=== PATIENT | female | born 1960 | race Caucasian/White ===

== ENCOUNTER 2019-07-03 09:43 | Outpatient (CLI) | payer BC, SELFPAY ==
--- NOTE | 2019-07-03 09:54 | XR_ITS ---
WS: [id number] Lumbar spine, 3 views, 07/03/2019 Clinical Data: low back pain worse on right Comparison: None. Findings: No compression fractures or subluxation is seen. No disc space narrowing is seen. The transverse proc esses and SI joints are normal. There is calcification in the wall of the abdominal aorta but no aneurysm is present. XR/XR lumbar spine 2-3V* [id number] Impression: Negative lumbar spine.
== END 2019-07-03 09:44 | disposition home or self-care (01) ==
LOC: RAD 09:47
PROVIDERS: Family Provider Internal Medicine; PCP Family Medicine; Visit Provider Family Medicine
DX: Z01.419 Encounter for gynecological examination (general) (routine) without abnormal findings (principal); Z13.6 Encounter for screening for cardiovascular disorders; M54.5 Low back pain; G89.29 Other chronic pain; N63.22 Unspecified lump in the left breast, upper inner quadrant; R91.1 Solitary pulmonary nodule; J01.90 Acute sinusitis, unspecified; R53.83 Other fatigue; B96.89 Other specified bacterial agents as the cause of diseases classified elsewhere; F17.219 Nicotine dependence, cigarettes, with unspecified nicotine-induced disorders
CPT/HCPCS: 72100; 80053; 80061; 84443; 85025; 88175

== ENCOUNTER 2019-07-09 09:39 | Outpatient (CLI) | payer BC, SELFPAY ==
--- NOTE | 2019-07-09 10:13 | CT_ITS ---
WS: [id number] CT CHEST TECHNIQUE: Contrast enhanced CT of the chest with coronal and sagittal reformatted images. CLINICAL INFORMATION: RIGHT LUNG NODULE COMPARISON: None. DLP: 544.[address] scans at [facility] use at least one of these dose optimization techniques: automat ed exposure control; mA and/or kV adjustment per patient size (includes targeted exams where dose is matched to clinical indication); or iterative reconstruction. FINDINGS: Mild chronic emphysematous changes. No acute pulmonary infiltrates. No focal pneumonia. No consolidat ion or pleural fluid. Noncalcified pulmonary nodule right middle lobe measuring 4.7 mm. Subsegmental atelectasis right middle lobe. Calcified granuloma right upper lobe. Proximal main pulmonary arteries are normal. No mediastinal or hilar lymphadenopathy. Normal caliber thoracic aorta. No axillary lymphadenopathy. Small bilateral low-attenuation thyroid nodules measurin g 6 to 7 mm. Normal endobronchial tree. Hepatic cyst right hepatic lobe measuring 3.9 x 3.1 CM. A few smaller incidental hepatic cysts. Adren al glands are normal. Normal GE junction. Normal visualized thoracic spine. Small splenules. CT/CT chest w con* [id number] IMPRESSION: 1. Mild chronic emphysematous changes. No acute pulmonary infiltrates. 2. Noncalcified 4.7 mm nodule right middle lobe. No other suspicious pulmonary opacities. Recommend 6 month follow-up. 3. Right hepatic cyst measuring 3.9 x 3.1 CM. A few additional smaller hepatic cysts. 4. No mediastinal or hilar lymphadenopathy.
[2019-07-09] MEDS: iohexol 300 mg/mL 100 mL Btl IV (10:29)
== END 2019-07-09 09:40 | disposition home or self-care (01) ==
PROVIDERS: Family Provider Internal Medicine; PCP Family Medicine; Visit Provider Family Medicine
DX: R91.1 Solitary pulmonary nodule (principal); K76.89 Other specified diseases of liver
CPT/HCPCS: 71260; Q9967

== ENCOUNTER 2019-07-24 08:25 | Outpatient (CLI) | payer BC, SELFPAY ==
--- NOTE | 2019-07-24 08:32 | MM_ITS ---
WS: [id number] BILATERAL DIGITAL DIAGNOSTIC MAMMOGRAM MAMMOGRAPHY WITH CAD CLINICAL INFORMATION: LEFT BREAST LUMP COMPARISON: 015 TECHNIQUE: Bilateral CC, MLO, and ML views. FINDINGS: Scattered fibroglandular densities bilaterally. Punctate and lucent centered calcifications. Palpable marker left breast. No definite underlying mammographic abnormalities. Ultrasound is pending. Vascul ar calcification. Right breast is unchanged. ULTRASOUND BREAST LEFT TECHNIQUE: Ultrasound left breast focused area of concern. CLINICAL INFORMATION: LEFT BREAST LUMP FINDINGS: Ultrasound left breast at the 11 to 1:00 position. Incidental lymph node is noted at the 1:00 positio n. No evidence of pathologic mass or lesion. No lesions to target for biopsy. MM/[place] [id number] BI-RADS: 2-Benign FOLLOW UP: 1 Year Follow-up Recommend return to annual screening mammography.
== END 2019-07-24 08:26 | disposition home or self-care (01) ==
LOC: RADSHAW 08:25
PROVIDERS: Family Provider Internal Medicine; PCP Family Medicine; Visit Provider Family Medicine
DX: N63.22 Unspecified lump in the left breast, upper inner quadrant (principal)
CPT/HCPCS: 76642; 77066

== ENCOUNTER → 2019-07-30 11:30 | Outpatient (BNVA) | payer BC, SELFPAY | PROVIDERS: Family Provider Internal Medicine; PCP Family Medicine; Referring Provider Family Medicine; Visit Provider Otolaryngology | DX: H93.92 Unspecified disorder of left ear (principal); H69.82 Other specified disorders of Eustachian tube, left ear; J34.2 Deviated nasal septum; J34.3 Hypertrophy of nasal turbinates; J30.9 Allergic rhinitis, unspecified; J32.9 Chronic sinusitis, unspecified; F17.210 Nicotine dependence, cigarettes, uncomplicated | CPT/HCPCS: 96372; 99204; 99214; J3301 ==

== ENCOUNTER 2019-08-13 08:22 | Outpatient (CLI) | payer BC, SELFPAY ==
--- NOTE | 2019-08-13 08:45 | US_ITS ---
WS: [id number] ABDOMINAL ULTRASOUND LIMITED REASON FOR VISIT: hepatic cyst TECHNIQUE: Grayscale and Doppler ultrasound examination of the abdomen. FINDINGS: Pancreas: Within normal limits Abdominal aorta and IVC: Within normal limits. Liver: Liver measures 14.1 cm in length. The liver shows 3 prominent cystic masses 1 measured 2.91 x 2.91 cm x 4.02 cm, the second measures 2.5 cm and the third measures 3.3 cm. All meet the criteria fo r simple cysts. Hepatopedal circulation is evident. Gallbladder: Gallbladder wall thickness measures 0.2 mm. No stones Right kidney: Right kidney measures 9.2 cm x 4.0 cm x 4.4 cm. Right kidney cortex measures 0.9 c m No hydronephrosis or stones. IMPRESSION Multiple benign hepatic cysts.
== END 2019-08-13 08:23 | disposition home or self-care (01) ==
LOC: US 08:24
PROVIDERS: Family Provider Family Medicine; PCP Family Medicine; Visit Provider Family Medicine
DX: K76.89 Other specified diseases of liver (principal)
CPT/HCPCS: 76705

== ENCOUNTER 2019-08-18 14:16 | Emergency (ER) | payer BC, SELFPAY ==
[2019-08-18 14:20] VITALS: BP 187/99; PULSE 71; RESP 17; TEMP 36.9; O2SAT 97; BMI 23.9
--- NOTE | 2019-08-18 15:01 | XR_ITS ---
WS: [id number] Sacroiliac joints, 08/18/2019 Clinical Data: pain Comparison: Sacrum and coccyx, 05/02/2015. Findings: The SI joints are normal in width. No erosion, sclerosis or destruction is seen. There are no fractur es or dislocations. The adjacent visualized pelvis and hips are unremarkable. XR/XR sacroiliac jts m 3V [id number] Impression: Negative SI joints.
--- NOTE | 2019-08-18 15:01 | CT_ITS ---
WS: [id number] CT ABDOMEN PELVIS TECHNIQUE: Contrast-enhanced CT of the abdomen and pelvis with coronal and sagittal reformatted image s. CLINICAL INFORMATION: R sided abdominal pain COMPARISON: None. DLP: 485.[address] scans at [facility] use at least one of these dose optimization techniques: automat ed exposure control; mA and/or kV adjustment per patient size (includes targeted exams where dose is matched to clinical indication); or iterative reconstruction. FINDINGS: Lobulated right hepatic cyst measuring 3.6 CM. Additional small incidental hepatic cysts in both hepa tic lobes. Normal spleen. Adrenal glands are normal. Normal renal parenchymal enhancement. Normal por graham veins and splenic vein. Normal gallbladder. Adrenal glands are normal. Normal renal parenchymal e nhancement. Small left greater than right renal cysts. No hydronephrosis. Normal caliber abdominal aorta. Aortic calcification. Fat-containing umbilical hernia. Appendix is no t definitely visualized. No evidence of acute appendicitis. Lung bases are well aerated. CT/CT abdomen pelvis w con* [id number] IMPRESSION: 1. No evidence of small or large bowel obstruction. A few normal caliber fluid -filled small bowel loops in the pelvis. 2. Appendix is not definitely visualized but no evidence of acute appendicitis . 3. Multiple simple hepatic cysts largest in the right hepatic lobe measuring 3 .6 cm. 4. Normal renal parenchymal enhancement. No hydronephrosis. 5. A few renal cysts the largest in the left kidney measuring 1.2 CM.
--- NOTE | 2019-08-18 15:03 | W.ED.ABDPA2 ---
HPI - Abdominal Pain General: Chief Complaint: Abdominal Pain Stated Complaint: RT side pain Time Seen by Provider: 08/18/19 14:25 Source: patient Mode of arrival: ambulatory Limitations: no limitations History of Present Illness: HPI narrative: Patient is a 59-year-old female who presents to ED today with complaints of right-sided back pain with radiation down into her right hip and around into her abdomen. Patient states she initially noticed the pain about a month ago but that pain apparently was complaining more of pain in the chest. A CT of her chest was obtained from her PCP which showed a pulmonary nodule and incidental findings of hepatic cysts. She subsequently had an ultrasound of her abdomen to further evaluate which again showed simple hepatic cysts. Patient tells me earlier today while moving she felt a pop and immediately began having severe pains. She tells me her pains feel internal and seems agitated that previous providers have suggested it might be musculoskeletal. Patient reports she feels nauseous due to the pain. Urinary and defecation habits have been normal. She has not been running fevers. Pain does not radiate down her right lower extremity. Associated Symptoms: Reports nausea; Denies change in bowel habits, change in stool character, chills, coffee ground emesis, diarrhea, dysuria, fever(s), heartburn, hematochezia, hematemesis, melena, syncope and vomiting Review of Systems Const: Denies: fever, chills, body aches, change in appetite, change in weight or fatigue Eyes: Denies: change in vision, blurry vision or photophobia ENMT: Denies: throat pain, enlarged tonsils or painful swallowing Card: Denies: chest pain, palpitations, irregular heart rhythm, edema, swelling of feet/ankles, lightheadedness, syncope, pre-syncope, shortness of breath on exertion, shortness of breath when lying down, leg pain with exertion or bluish discoloration of hands/feet Resp: Denies: shortness of breath, productive cough, non-productive cough, change in phlegm color, coughing up blood or chest congestion GI: Reports: abdominal pain and nausea; Denies: vomiting, vomiting blood, coffee grounds in vomit, heartburn/indigestion, diarrhea, change in bowel habits, change in stool character, blood in stool, black tarry stool, mucus in stool, white/light colored stool or fatty stool : Denies: flank pain, difficulty urinating, painful urination, urinary frequency, urinary urgency or urinary hesitancy Musc: Reports: back pain; Denies: neck pain, extremity pain, extremity swelling, joint pain, joint swelling or limited range of motion Skin/Breast: Denies: rash Neuro: Denies: headache, numbness in extremities, weakness in extremities or changes in sensation PFSH ED PFSH: Medical History (Updated 08/18/19 @ 16:41 by COTY Ojeda) Chronic sinusitis Deviated septum Fibromyalgia H/O fracture of tibia Nasal turbinate hypertrophy Nicotine dependence, cigarettes, with unspecified nicotine-induced disorders Rhinitis, allergic Right lower lobe pulmonary nodule Right-sided chest pain Seasonal affective disorder Surgical History H/O bone graft H/O section H/O lumpectomy H/O shoulder surgery BILATER S/P partial hysterectomy Due to endometrial cancer Status post bilateral salpingectomy Social History Smoking and tobacco status: current every day smoker cigarettes Packs smoked per day: 0.25 Alcohol intake: current Alcohol intake frequency: holidays/special occasions only Alcohol type: wine Adopted: Yes Marital status: Life Partner Physical Exam Const: COMMON NORMALS: average body habitus, oriented x3, no limitations, healthy appearing, alert and well nourished GENERAL APPEARANCE: in distress (pacing around room due to discomfort ) HENMT: COMMON NORMALS: normocephalic and head/scalp atraumatic HEAD & SCALP: normocephalic and atraumatic Chest: COMMONS NORMALS: inspection of chest normal and palpation of chest normal Resp: COMMON NORMALS: normal respiratory effort and clear to auscultation bilaterally AUSCULTATION: clear to auscultation bilaterally Cardio: COMMON NORMALS: regular rate and regular rhythm RATE: regular rate RHYTHM: regular rhythm GI: COMMON NORMALS: normal to inspection, nondistended, normoactive bowel sounds, soft to palpation, no hepatosplenomegaly and no masses PALPATION: Yes soft, Yes tender (R lateral abdomen) and Yes no hepatosplenomegaly : COMMON NORMALS: Yes no CVA tenderness BLADDER/KIDNEY EXAM: Yes no CVA tenderness Back/Pelvis: COMMON NORMALS: no CVA tenderness OTHER: TTP at R sacroiliac region and throughout R lumbar paraspinal musculature; ROM of hip joint is intact; strength to her LEs are intact; femoral and distal pulses intact and equal bilaterally Extremity: COMMON NORMALS: normal to inspection, full ROM, normal capillary refill, no calf tenderness and no pedal edema Neuro: COMMON NORMALS: oriented x3, moves all extremities, no focal motor deficits, no sensory deficits noted and gait normal SENSORIUM/ORIENTATION: Yes alert Skin: COMMON NORMALS: no rashes or lesions noted GENERAL SKIN EXAM: no rashes or lesions noted Course Vital Signs: Vital signs: Vital Signs Temperature 98.4 F 08/18/19 14:20 Pulse Rate 71 08/18/19 14:20 Respiratory Rate 17 08/18/19 15:08 Blood Pressure 187/99 08/18/19 14:20 Pulse Oximetry 97 08/18/19 14:20 MDM - Abdominal Pain MDM Narrative: Medical decision making narrative: I do not see anything grossly abnormal patient's blood work. Her XRs and CT scan do not show anything that would explain her symptoms. UA is contaminated but does show a little blood-I do not visualize any kidney stone or ureter stone on her scan. Timing of symptoms and history given today does not seem to coincide with a stone. I feel patient's are most likely related to a sacroiliitis. We will go ahead and try to treat this and recommend she follow-up with PCP. Lab Data: Labs: Lab Results 08/18/19 08/18/19 08/18/19 Range/Units 14:35 14:35 15:42 WBC 12.8 H (4.0-10.0) 10^3/ uL RBC 5.22 (4.1-5.3) 10^6/u L Hgb 15.9 H (11.5-15.3) g/dL Hct 48.3 H (37.0-47.0) % MCV 92.5 (81-99) fL MCH 30.5 (28.0-34.0) pg MCHC 32.9 (30.0-36.0) g/dL RDW 14.0 (12.1-15.1) % Plt Count 236 (130-400) 10^3/c mm MPV 12.9 H (7.4-10.4) fL Neut % (Auto) 59.5 % Lymph % (Auto) 31.8 % [place] % (Auto) 5.4 % Eos % (Auto) 2.2 % Baso % (Auto) 0.8 % Neut # (Auto) 7.7 (1.8-7.7) 10^3/u L Lymph # (Auto) 4.1 (0.8-4.8) 10^3/u L [place] # (Auto) 0.7 (0.2-0.9) 10^3/u L Eos # (Auto) 0.3 (0.0-0.8) 10^3/u L Baso # (Auto) 0.1 (0.0-0.1) 10^3/u L Nucleated RBC % (a uto) 0 % Nucleated RBCs # 0.0 /100WBC Sodium 139 (136-145) mmol/L Potassium 3.6 (3.5-5.1) mmol/L Chloride 101 (98-107) mmol/L Carbon Dioxide 25 (22-29) mmol/L Anion Gap 16.6 (5-19) BUN 10 (6-20) mg/dL Creatinine 0.7 (0.5-0.9) mg/dL GFR Calculation 86.2 L (90-130) mL/min Glucose 115 (65-115) mg/dL Calculated Osmolal ity 285 (285-295) mOsm/k g Calcium 9.7 (8.5-10.5) mg/dL Total Bilirubin 0.3 (0.15-1.2) mg/dL AST 27 (0-32) U/L ALT 34 H (0-33) U/L Alkaline Phosphata se 105 (35-105) IU/L Total Protein 7.6 (6.6-8.7) g/dL Albumin 4.7 (3.5-5.2) g/dL Globulin 2.9 (1.3-4.6) g/dL Lipase 16 (13-60) U/L Urine Color Yellow (Yellow) Urine Appearance Clear (CLEAR) Urine pH 5 (5-7) Ur Specific Gravit y 1.010 (1.005-1.030) Urine Protein Neg (Negative) Urine Glucose (UA) Norm (Normal) Urine Ketones 1+ H (Negative) Urine Blood 2+ H (Negative) Urine Nitrate Negative (Negative) Urine Bilirubin Neg (NEGATIVE) Urine Urobilinogen Norm (Negative) mg/dL Ur Leukocyte Liliana ase Negative (Negative) Urine RBC 15-25 H (0-2) /hpf Urine WBC 0-4 H (0-5) /hpf Ur Squamous Epith Cells 5-10 H (0-5) Urine Bacteria 2+ H (NONE) Urine Mucus 3+ Imaging Data ^: XR SI joints: Radiologist's impression: [place] [address] XRay Report Signed Patient: Albertina Soto Unit #: [id number] : 1960 Age/Sex: 59 / F ADM Date: 08/18/19 Loc: ER Room/Bed: Attending Dr: Ordering Provider/Ordering MD: Do Cardenas Date of Service: 08/18/19 Procedure(s): XR sacroiliac jts m 3V [id number] Accession Number(s): [id number] Report Number: [id number] WS: [id number] Sacroiliac joints, 08/18/2019 Clinical Data: pain Comparison: Sacrum and coccyx, 05/02/2015. Findings: The SI joints are normal in width. No erosion, sclerosis or destruction is seen. There are no fractures or dislocations. The adjacent visualized pelvis and hips are unremarkable. XR/XR sacroiliac jts m 3V [id number] Impression: Negative SI joints. Dictated By: Brie Eduardo MD Signed By: Brie Eduardo MD Signed Date/Time: 08/18/19 1522 DD/ 1520 CT Abd/Pel: Radiologist's impression: [address] [address] [address] Scan Report Signed Patient: Albertina Soto Unit #: [id number] : 1960 Age/Sex: 59 / F ADM Date: 08/18/19 Loc: ER Room/Bed: Attending Dr: Ordering Provider/Ordering MD: Do Cardenas Date of Service: 08/18/19 Procedure(s): CT abdomen pelvis w con* [id number] Accession Number(s): [id number] Report Number: [id number] WS: [id number] CT ABDOMEN PELVIS TECHNIQUE: Contrast-enhanced CT of the abdomen and pelvis with coronal and sagittal reformatted images. CLINICAL INFORMATION: R sided abdominal pain COMPARISON: None. DLP: 485.[address] scans at [facility] use at least one of these dose optimization techniques: automated exposure control; mA and/or kV adjustment per patient size (includes targeted exams where dose is matched to clinical indication); or iterative reconstruction. FINDINGS: Lobulated right hepatic cyst measuring 3.6 CM. Additional small incidental hepatic cysts in both hepatic lobes. Normal spleen. Adrenal glands are normal. Normal renal parenchymal enhancement. Normal portal veins and splenic vein. Normal gallbladder. Adrenal glands are normal. Normal renal parenchymal enhancement. Small left greater than right renal cysts. No hydronephrosis. Normal caliber abdominal aorta. Aortic calcification. Fat-containing umbilical hernia. Appendix is not definitely visualized. No evidence of acute appendicitis. Lung bases are well aerated. CT/CT abdomen pelvis w con* [id number] IMPRESSION: 1. No evidence of small or large bowel obstruction. A few normal caliber fluid-filled small bowel loops in the pelvis. 2. Appendix is not definitely visualized but no evidence of acute appendicitis. 3. Multiple simple hepatic cysts largest in the right hepatic lobe measuring 3.6 cm. 4. Normal renal parenchymal enhancement. No hydronephrosis. 5. A few renal cysts the largest in the left kidney measuring 1.2 CM. Dictated By: Bradley Berkowitz MD Signed By: Bradley Berkowitz MD Signed Date/Time: 08/18/19 1600 DD/ 1539 Discharge Plan Discharge Patient Disposition: Home, Self-Care Clinical Impression: Sacroiliitis Condition: Stable Prescriptions: New cyclobenzaprine 10 mg tablet 10 mg PO TID Qty: 14 RF: 0 prednisone 10 mg tablet 60 mg PO DAILY 5 Days Qty: 30 RF: 0 tramadol 50 mg tablet 50 mg PO Q6H PRN (Reason: pain) Qty: 14 RF: 0 No Action duloxetine [Cymbalta] 20 mg capsule,delayed release(DR/EC) 20 mg PO BID Qty: 60 RF: 0 diclofenac sodium 75 mg tablet,delayed release (DR/EC) 75 mg PO BID Qty: 60 RF: 0 simvastatin 20 mg tablet 20 mg PO DAILY Qty: 45 RF: 0 Vitamin C 1,000 mg Tablet 2,000 mg PO DAILY RF: 0 Vitamin B-12 1,000 mcg Tablet 1,000 mcg PO DAILY RF: 0 Calcium 500 500 mg calcium (1,250 mg) Tablet 500 mg PO DAILY RF: 0 zinc 50 mg Tablet 50 mg PO DAILY RF: 0 niacin 250 mg Tablet 250 mg PO DAILY RF: 0 Vitamin D3 25 mcg (1,000 unit) Tablet 25 mcg PO DAILY RF: 0 potassium iodide 99 MG 99 mg PO DAILY RF: 0 Discharge Orders: Discharge Order (Routine); Ordered 08/18/19 Ordered By: Do Cardenas Referrals: Crystal Solorzano DO [Primary Care Provider] - Discharge Diet: Usual diet Discharge Activity: Increase activity as tolerated Patient Instructions: Sacroiliitis (ED), Back Pain (ED) Coding Level of Care Code ED [employer] 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
[2019-08-18 15:08] VITALS: RESP 17
[2019-08-18] MEDS: ketorolac 60 mg/2 mL INJ 30 MG IVP (15:08)
[2019-08-18] MEDS: morphine 4 mg/mL SDV 1 mL IVP (15:08)
[2019-08-18] MEDS: orphenadrine 30 mg/mL Inj 2 mL 60 MG IM (15:09)
[2019-08-18 15:16] LABS: Basophils # 0.1 10^3/uL (0.0-0.1); Basophils % 0.8 %; Eosinophils # 0.3 10^3/uL (0.0-0.8); Eosinophils % 2.2 %; Hematocrit 48.3 % (37.0-47.0); Hemoglobin 15.9 g/dL (11.5-15.3); Lymphocytes # 4.1 10^3/uL (0.8-4.8); Lymphocytes % 31.8 %; Mean Corpuscular HGB Conc 32.9 g/dL (30.0-36.0); Mean Corpuscular Hemoglobin 30.5 pg (28.0-34.0); Mean Corpuscular Volume 92.5 fL (81-99); Mean Platelet Volume 12.9 fL (7.4-10.4); Monocytes # 0.7 10^3/uL (0.2-0.9); Monocytes % 5.4 %; Neutrophils # 7.7 10^3/uL (1.8-7.7); Neutrophils % 59.5 %; Nucleated Red Blood Cells % 0 %; Platelet Count 236 10^3/cmm (130-400); Red Blood Count 5.22 10^6/uL (4.1-5.3); White Blood Count 12.8 10^3/uL (4.0-10.0)
[2019-08-18 15:26] LABS: Alanine Aminotransferase 34 U/L (0-33); Albumin Level 4.7 g/dL (3.5-5.2); Alkaline Phosphatase 105 IU/L (35-105); Anion Gap 16.6 (5-19); Aspartate Amino Transferase 27 U/L (0-32); Blood Urea Nitrogen 10 mg/dL (6-20); Calcium 9.7 mg/dL (8.5-10.5); Carbon Dioxide 25 mmol/L (22-29); Chloride 101 mmol/L (98-107); Globulin 2.9 g/dL (1.3-4.6); Glomerular Filtration Rate 86.2 mL/min (90-130); Glucose 115 mg/dL (65-115); Lipase 16 U/L (13-60); Osmolality Calculated 285 mOsm/kg (285-295); Potassium 3.6 mmol/L (3.5-5.1); Sodium 139 mmol/L (136-145); Total Bilirubin 0.3 mg/dL (0.15-1.2); Total Protein 7.6 g/dL (6.6-8.7)
[2019-08-18] MEDS: iohexol 300 mg/mL 100 mL Btl IV (15:29)
[2019-08-18] MEDS: dexamethasone 10 mg/mL INJ IM (16:04)
[2019-08-18 16:20] LABS: Blood Urine 2+ (Negative); Glucose Urine UA Norm (Normal); Ketones Urine 1+ (Negative); Protein Urine Neg (Negative); Urine Appearance Clear (CLEAR); Urine Color Yellow (Yellow); pH Urine 5 (5-7)
[2019-08-18 16:21] LABS: Bilirubin Urine Neg (NEGATIVE); Leukocyte Esterase Urine Negative (Negative); Nitrate Urine Negative (Negative); Urobilinogen Urine Norm (Negative)
[2019-08-18 16:22] LABS: Add Urine Microscopic? YES
[2019-08-18 16:24] LABS: RBC Urine 15-25 /hpf (0-2); WBC Urine 0-4 /hpf (0-5)
[2019-08-18 16:25] LABS: Add Urine Culture? Yes; Bacteria Urine 2+; Mucus Urine 3+
[2019-08-18 16:53] VITALS: BP 137/92; PULSE 69; RESP 16; O2SAT 99
== END 2019-08-18 16:53 | disposition home or self-care (01) ==
PROVIDERS: Emergency Provider Physician Assistant; Family Provider Family Medicine; PCP Family Medicine
DX: M46.1 Sacroiliitis, not elsewhere classified (principal); F17.210 Nicotine dependence, cigarettes, uncomplicated
CPT/HCPCS: 12345; 72202; 74177; 80053; 81001; 83690; 85025; 87086; 96372; 96374; 96375; 99282; 99284; J1100; J1885; J2270; J2360; Q9967

== ENCOUNTER 2019-10-21 10:33 | Outpatient (CLI) | payer BC, SELFPAY ==
--- NOTE | 2019-10-21 10:36 | XR_ITS ---
WS: [id number] THORACIC SPINE TECHNIQUE: 3 views of the thoracic spine CLINICAL INFORMATION: thoracic back pain COMPARISON: None. FINDINGS: Mild thoracic curve. No acute appearing compression fractures. Mild to moderate thoracic kyphosis wit h chronic anterior wedging in the mid thoracic spine. Mild spondylitic changes. Normal cardiac silhou ette. Visualized lungs are well aerated. XR/XR thoracic spine 2V [id number] IMPRESSION: Mild thoracic curve with mild to moderate thoracic kyphosis. No acute findings.
== END 2019-10-21 10:34 | disposition home or self-care (01) ==
LOC: RADWPI 10:34
PROVIDERS: Family Provider Family Medicine; PCP Family Medicine; Visit Provider Family Medicine
DX: M54.6 Pain in thoracic spine (principal); G89.29 Other chronic pain; M40.294 Other kyphosis, thoracic region
CPT/HCPCS: 72070

== ENCOUNTER → 2019-12-24 09:29 | Outpatient (BNVA) | payer BC, SELFPAY | PROVIDERS: Family Provider Family Medicine; PCP Family Medicine; Visit Provider Family Medicine | DX: E78.5 Hyperlipidemia, unspecified (principal); M79.7 Fibromyalgia; J01.90 Acute sinusitis, unspecified; B96.89 Other specified bacterial agents as the cause of diseases classified elsewhere | CPT/HCPCS: 80053; 80061 ==

== ENCOUNTER 2019-12-29 07:48 | Outpatient (CLI) | payer BC, SELFPAY ==
--- NOTE | 2019-12-29 08:00 | MR_ITS ---
WS: [id number] MRI THORACIC SPINE WITHOUT CONTRAST TECHNIQUE: Sagittal T1, T2 and STIR imaging. Axial T2 imaging. Noncontrast imaging obtained. CLINICAL INFORMATION: PAIN IN THORACIC SPINE COMPARISON: MRI November 19, 2019 FINDINGS: Moderate thoracic kyphosis. No acute compression fractures. No high-grade central canal stenosis. Cor d signal is normal. Small central disc protrusion T9-T10 with slight effacement of ventral thecal sac . Moderate facet arthropathy lower thoracic spine. Mild bony foraminal narrowing right T3-4, right T4-5, right T5-6, right T6-7, right T7-8. Normal myrna iber thoracic aorta. MR/MR thoracic spin wo con* [id number] IMPRESSION: 1. Mild thoracic kyphosis. No acute compression. No high-grade central canal s tenosis. 2. Tiny shallow central protrusion T9-T10 with slight effacement of the thecal sac. 3. Moderate facet arthropathy lower thoracic spine. 4. Mild bony foraminal narrowing described above.
== END 2019-12-29 07:49 | disposition home or self-care (01) ==
LOC: RADWPI 07:52
PROVIDERS: Family Provider Family Medicine; PCP Family Medicine; Visit Provider Family Medicine
DX: M54.6 Pain in thoracic spine (principal); M47.894 Other spondylosis, thoracic region
CPT/HCPCS: 72146

== ENCOUNTER → 2020-05-11 15:56 | Outpatient (BNVA) | payer BC, SELFPAY | PROVIDERS: Family Provider Family Medicine; PCP Family Medicine; Visit Provider Family Medicine | DX: Z20.828 Contact with and (suspected) exposure to other viral communicable diseases (principal) | CPT/HCPCS: 87635 ==

== ENCOUNTER → 2020-05-16 10:28 | Outpatient (BNVA) | payer BC, SELFPAY | PROVIDERS: Family Provider Family Medicine; PCP Family Medicine; Visit Provider Nurse Practitioner Family | DX: Z20.828 Contact with and (suspected) exposure to other viral communicable diseases (principal); J11.1 Influenza due to unidentified influenza virus with other respiratory manifestations; J32.9 Chronic sinusitis, unspecified | CPT/HCPCS: 87635 ==

== ENCOUNTER → 2020-07-08 17:47 | Outpatient (BNVA) | payer OTHER, SELFPAY | PROVIDERS: Family Provider Family Medicine; PCP Family Medicine; Visit Provider Nurse Practitioner | DX: S99.922A Unspecified injury of left foot, initial encounter (principal); S59.901A Unspecified injury of right elbow, initial encounter; X58.XXXA Exposure to other specified factors, initial encounter | CPT/HCPCS: 73080; 73630 ==

== ENCOUNTER → 2020-09-17 13:18 | Outpatient (BNVA) | payer OTHER, SELFPAY | PROVIDERS: Family Provider Family Medicine; PCP Family Medicine; Visit Provider Nurse Practitioner | DX: J02.9 Acute pharyngitis, unspecified (principal); J20.9 Acute bronchitis, unspecified; J01.90 Acute sinusitis, unspecified; B96.89 Other specified bacterial agents as the cause of diseases classified elsewhere | CPT/HCPCS: 87071; 87880 ==

== ENCOUNTER 2020-09-22 10:10 | Outpatient (CLI) | payer OTHER, SELFPAY ==
--- NOTE | 2020-09-22 10:00 | CT_ITS ---
WS: [id number] CT CHEST TECHNIQUE: Contrast enhanced CT of the chest with coronal and sagittal reformatted images. CLINICAL INFORMATION: lung nodule COMPARISON: CT chest July 09, 2019 DLP: 613.[address] scans at [facility] use at least one of these dose optimization techniques: automat ed exposure control; mA and/or kV adjustment per patient size (includes targeted exams where dose is matched to clinical indication); or iterative reconstruction. FINDINGS: Moderate chronic emphysematous changes. No acute pulmonary infiltrates. No focal pneumonia or pleural fluid. A few calcified granulomas. Normal caliber thoracic aorta. Small bilateral thyroid nodules la rgest measuring 7 mm. No mediastinal or hilar lymphadenopathy. No axillary lymphadenopathy. Diffuse fatty infiltration of the liver. Partially visualized hepatic cysts the largest measuring 4.3 x 3.8 cm in the dome the liver. Adrenal glands are normal. Partially visualized small left renal cys t. Normal GE junction. Unremarkable thoracic spine. CT/CT chest w con* [id number] IMPRESSION: 1. Moderate chronic emphysematous changes. No acute pulmonary infiltrates. 2. Stable noncalcified nodule right middle lobe measuring 4.4 mm unchanged fro m previous. No other suspicious abnormalities. 3. A few partially visualized small thyroid nodules measuring 7 mm. This can b e followed up with ultrasound. This is similar to previous. 4. Hepatic cyst within the dome of the liver similar in appearance measuring 4 .3 x 3.8 cm
[2020-09-22] MEDS: iohexol 300 mg/mL 100 mL Btl IV (10:56)
== END 2020-09-22 10:11 | disposition home or self-care (01) ==
PROVIDERS: Family Provider Family Medicine; PCP Family Medicine; Visit Provider Family Medicine
DX: R91.1 Solitary pulmonary nodule (principal); K76.89 Other specified diseases of liver; F41.9 Anxiety disorder, unspecified; F32.9 Major depressive disorder, single episode, unspecified
CPT/HCPCS: 71260; 80053; 80061; 84443; 85025; Q9967

== ENCOUNTER 2020-10-25 14:53 | Emergency (ER) | payer OTHER, SELFPAY ==
[2020-10-25 15:48] VITALS: BP 139/85; PULSE 72; RESP 18; TEMP 36.9; O2SAT 99; BMI 25.4
--- NOTE | 2020-10-25 16:59 | W.ED.ANIMALB ---
HPI - Animal Bite General: Chief Complaint: Animal Bite Stated Complaint: ANIMAL BITE Time Seen by Provider: 10/25/20 16:29 Source: patient Mode of arrival: ambulatory Limitations: no limitations History of Present Illness: HPI narrative: 60-year-old female comes in today for injury to the left palmar hand that occurred yesterday. Patient reports that she had to 4-month-old Thai Gallagher puppies and got into a fight and she went to break them up and got injured. Patient has some ecchymosis and a puncture wound to the left palmar hand. Patient has normal range of motion of the hand. Patient reports her tetanus shot is up-to-date. Animal: dog Description of animal: household pet Mechanism: bite Location - Extremities: Left: hand Pain description: sharp Context: animals fighting Associated symptoms: Reports no associated symptoms Treatments prior to arrival: wound dressing(s) Review of Systems General: Reports: 10 or more systems reviewed and unremarkable except in HPI and below Musc: Reports: other (left hand pain) [facility] ED PFSH: Medical History (Updated 10/25/20 @ 17:03 by JOSEPH King) Chronic sinusitis Deviated septum Dyslipidemia Fibromyalgia H/O fracture of tibia Nasal turbinate hypertrophy Nicotine dependence, cigarettes, with unspecified nicotine-induced disorders Rhinitis, allergic Right lower lobe pulmonary nodule Right-sided chest pain Seasonal affective disorder Surgical History H/O bone graft H/O section H/O lumpectomy H/O shoulder surgery BILATER S/P partial hysterectomy Due to endometrial cancer Status post bilateral salpingectomy Family History Other Adopted Cancer Depression Social History Smoking and tobacco status: current every day smoker cigarettes Packs smoked per day: 0.25 Second hand smoke exposure: Yes Alcohol intake: current Alcohol intake frequency: holidays/special occasions only Alcohol type: wine Adopted: Yes Lives independently: Yes Household members: significant other Marital status: Life Partner service: No Current occupational status: retired History of recent travel: Yes Current gender identity: Female Special carlos manuel needs: No Physical Exam Const: COMMON NORMALS: no acute distress and patient oriented x3 GENERAL APPEARANCE: cooperative HENMT: COMMON NORMALS: normocephalic and Normal external nose present HEAD & SCALP: normal to inspection and normocephalic NOSE: Normal external nose present MOUTH: Normal oral and palatal mucosa present Eye: GENERAL EYE: appearance normal, both eyes and all related structures Neck/C-Spine: COMMON NORMALS: full ROM Lymph: LYMPHATIC: no lymphadenopathy noted Chest: COMMONS NORMALS: normal inspection of the chest Resp: COMMON NORMALS: normal respiratory effort EFFORT & INSPECTION: Yes able to speak in complete sentences Cardio: COMMON NORMALS: regular rate and regular rhythm RATE: regular rate RHYTHM: regular rhythm GI: COMMON NORMALS: non-tender Back/Pelvis: COMMON NORMALS: thoracic and lumbar spine normal to inspection Extremity: COMMON NORMALS: normal to inspection Neuro: COMMON NORMALS: patient oriented x3 and moves all extremities Psych: COMMON NORMALS: mental status grossly normal and cooperative Skin: NARRATIVE SKIN EXAM: puncture wound to left palmar hand, 2 cm superficial, normal rom TRAUMA: puncture Course Vital Signs: Vital signs: Vital Signs Temperature 98.5 F 10/25/20 15:48 Pulse Rate 72 10/25/20 15:48 Respiratory Rate 18 10/25/20 15:48 Blood Pressure 139/85 10/25/20 15:48 Pulse Oximetry 99 10/25/20 15:48 MDM - Animal Bite MDM Narrative: Medical decision making narrative: Patient comes in with injury to the left hand. Patient has some significant bruising noted to the palmar hand and the distal inner forearm. Patient has normal range of motion of the wrist and hand without any difficulty or increased pain with movement. Minimal swelling is noted. No redness is noted. Injuries occurred due to animal bite yesterday. Differential diagnosis need for prophylaxis vaccination, need for prophylaxis antibiotics, laceration hand, animal bite. Offered to give patient an x-ray and she refused. Patient reported that her tetanus shot was up-to-date. Wound is greater than 12 hours old and did not recommend suturing due to increased risk of infection already due to animal bite. We will start patient on some Augmentin which she is agreeable to. Patient states that she has been able to tolerate Amoxil-containing medications although she does have a penicillin allergy. Patient reports understanding of care plan and need for follow-up or return. Discharge Plan Discharge Patient Disposition: Home Clinical Impression: Bite by animal Condition: Stable Prescriptions: New Augmentin 875-125 mg tablet 1 tab PO BID Qty: 14 RF: 0 No Action duloxetine [Cymbalta] 60 mg capsule,delayed release(DR/EC) 60 mg PO DAILY Qty: 30 RF: 0 duloxetine 30 mg capsule,delayed release(DR/EC) 30 mg PO DAILY Qty: 30 RF: 0 albuterol sulfate [Ventolin HFA] 90 mcg/actuation HFA aerosol inhaler 2 puff inhalation Q6H PRN (Reason: shortness of breath or wheezing) Qty: 6.7 RF: 0 fluticasone propionate [Flonase Allergy Relief] 50 mcg/actuation spray,suspension 1 spray INTRANASAL BID RF: 0 lisinopril 10 mg tablet 10 mg PO DAILY Qty: 30 RF: 0 simvastatin 20 mg tablet 20 mg PO DAILY Qty: 90 RF: 1 Rexulti 2 mg tablet 2 mg PO DAILY Qty: 30 RF: 0 buspirone 10 mg tablet 10 mg PO TID Qty: 90 RF: 1 Discharge Orders: Discharge ED (Routine); Ordered 10/25/20 Ordered By: Delonte Pedro Referrals: Crystal Solorzano DO [Primary Care Provider] - Discharge Diet: Usual diet Discharge Activity: Increase activity as tolerated Patient Instructions: Opioid Safety Activity Restrictions/Additional Instructions: Continue with good care of wound 5 changing dressing daily and trying to keep it clean and dry. Take antibiotic 1 tablet twice a day for the next 7 days. Use ice to the hand for the next 24 to 48 hours for swelling and discomfort. Use acetaminophen and ibuprofen for other pain relief. Follow-up with primary care for further evaluation and treatment. Return to the ER for new concerns. Coding Level of Care Code ED Requirements Analyst for Shital Fwd Exam Comprehensive
== END 2020-10-25 17:06 | disposition home or self-care (01) ==
PROVIDERS: Emergency Provider Nurse Practitioner Family; PCP Family Medicine
DX: S61.452A Open bite of left hand, initial encounter (principal); W54.0XXA Bitten by dog, initial encounter; E78.5 Hyperlipidemia, unspecified; F17.210 Nicotine dependence, cigarettes, uncomplicated
CPT/HCPCS: 99282

== ENCOUNTER 2020-10-26 10:04 | Outpatient (CLI) | payer OTHER, SELFPAY ==
--- NOTE | 2020-10-26 10:15 | US_ITS ---
WS: [id number] ULTRASOUND THYROID TECHNIQUE: Ultrasound of the thyroid. CLINICAL INFORMATION: THYROID NODULE COMPARISON: None. FINDINGS: Thyroid: Right and left thyroid lobes are normal in size and echotexture. Bilateral complex thyroid n odules bilaterally with internal debris Right thyroid lobe: 5.7 cm x 1.8 cm x 1.8 cm NODULE 1: 0.9 x 0.5 x 0.9 cm NODULE 2: 0.8 x 0.7 x 0.6 cm NODULE 3: 1.0 x 0.7 x 0.5 cm. Left thyroid lobe: 5.2 cm x 1.3 cm x 1.4 cm. Left thyroid nodule measuring 1.1 x 0.7 x 0.8 cm Isthmus: 0.3 mm. Cervical lymphadenopathy: None. US/US thyroid [id number] IMPRESSION: 1. Bilateral complex thyroid nodules. 3 nodules on the right and one on the le ft. 2. Largest nodules measure 1.0 x 0.7 x 0.5 cm in the right and 1.1 x 0.7 x 0.8 cm on the left. Recommend 12 month follow-up.
== END 2020-10-26 10:05 | disposition home or self-care (01) ==
LOC: RAD 10:06
PROVIDERS: PCP Family Medicine; Visit Provider Family Medicine
DX: E04.1 Nontoxic single thyroid nodule (principal); E04.2 Nontoxic multinodular goiter
CPT/HCPCS: 76536

== ENCOUNTER → 2020-12-02 13:15 | Outpatient (BNVA) | payer OTHER, SELFPAY | PROVIDERS: PCP Family Medicine; Visit Provider Family Medicine | DX: R30.0 Dysuria (principal) | CPT/HCPCS: 81000; 87077; 87086; 87184 ==

== ENCOUNTER 2020-12-21 07:17 | Outpatient (CLI) | payer OTHER, SELFPAY ==
--- NOTE | 2020-12-21 07:38 | ECG_ITS ---
[facility] [place] Date: 2020-12-21 Pat Name: Albertina Soto Department: Room: Gender: Female Lead Auditor: : 1960 Requested By: Crystal Solorzano Order Number: [id number] [place] MD: Latoya Pérez M.D. Interpretive Statements NAME OF STUDY: EXERCISE SESTAMIBI STRESS TEST INDICATION: Chest Pain, PROCEDURE: The baseline electrocardiogram showed [normal sinus rhythm with nonspecific T wave changes. Poor R wave progression.. At the baseline, the patient's blood pressure was 130/94 mm Hg with a heart rate of 69. The patient exercised for 4 minutes and 26 seconds on a standard [place] protocol. Patient attained a maximum heart rate of 153 beats per minute( 94 % of the maximum predicted heart rate) with a blood pressure at the peak exercise of 217/93 mm Hg. The EKG at the peak exercise revealed no significant changes. Patient did not have any chest pain or any significant arrhythmis with the exercise Sestamibi was injected 1 minute prior to the peak exercise During the recovery phase, there were no new changes. Blood pressure at the end of the recovery phase was 143/90 mm Hg with a heart rate of 97 per minute. CONCLUSION: 1. No significant EKG changes with the EKG response to [treadmill exercise 2. No exercise-induced chest pain or cardiac arrhythmia 3. Impaired exercise tolerance, attained a maximum of 7.0 METs 4. Sestamibi/Sestamibi perfusion results pending; see separate report. Electronically Signed On 12-23-2020 9:43:02 CDT by Latoya Pérez M.D. [id number]
--- NOTE | 2020-12-21 07:39 | NMCV_ITS ---
NM duong perf SPECT r/s* [id number] Albertina Soto Age: 60 Gender: F : 1960 Exam Date: 12/21/2020 08:28 Ordering Phys: Crystal Solorzano DO Technologist: MARIO Morton Exam Location: [facility] Indications: Chest pain STRESS TEST Please see separate stress test report in Ephiphany for full findings IMAGE PROTOCOL Rest/Stress 1 Exercise Day Radiopharmaceutical Dose (mCi) Administration Site Administered by Rest: Tc-99m 10.6 IV MARIO Morton Sestamibi Stress:Tc-99m 32.9 IV MARIO Morton Sestamibi Rest: 21-Dec-2020 60 Discovery 630 Stress: 21-Dec-2020 30 Discovery 630 Radiopharmaceutical was injected at 85 % maximum heart rate. SPECT RESULTS Technical Quality: Good Raw Data Analysis: Breast attenuation Image Corrections: Patient motion artifact - partial motion correction applied to rest images. Summed Stress Score: 1 Summed Rest Score: 0 Summed Difference Score: 1 PERFUSION FINDINGS Small area of slightly decreased tracer uptake in the apical lateral region, with complete eversibility. FUNCTIONAL RESULTS (calculated via Gated SPECT) Stress Image LV EF (%): 73 Stress EDV (mL):55 TID: 1.03 Stress ESV (mL):15 FUNCTIONAL FINDINGS: Segmental wall motion analysis revealed no gross wall motion abnormalities IMPRESSIONS #1. Myocardial perfusion imaging revealing a small area of reversible defect in the apical lateral region suggestive of ischemia in the distribution of the left circumflex artery. #2. Normal LV ejection fraction of 73%. #3. LV wall motion analysis revealing no gross wall motion abnormalities. #4. Normal LV volume. No similar previous studies are available for comparison Dr Latoya Pérez MD [facility] (Electronically Signed) Final Date: 22 December 2020 08:27 S
[2020-12-21 07:40] VITALS: BMI 26.7
[2020-12-21 09:34] VITALS: BP 143/90; PULSE 96
== END 2020-12-21 07:18 | disposition home or self-care (01) ==
LOC: RAD 07:20 → CDL 07:40
PROVIDERS: PCP Family Medicine; Visit Provider Family Medicine
DX: R07.9 Chest pain, unspecified (principal)
CPT/HCPCS: 78452; 93017; A9500

== ENCOUNTER 2021-02-23 12:00 | Outpatient (CLI) | payer OTHER, SELFPAY | END 2021-02-23 12:01 | disposition home or self-care (01) | LOC: SLEEP 02-24 13:14 | PROVIDERS: PCP Family Medicine; Visit Provider Family Medicine | DX: G47.10 Hypersomnia, unspecified (principal) | CPT/HCPCS: G0399 ==

== ENCOUNTER 2021-02-24 08:37 | Outpatient (CLI) | payer OTHER, SELFPAY ==
--- NOTE | 2021-02-24 08:45 | USCV_ITS ---
Albertina Soto Age: 60 Gender: F : 1960 Exam Date: 02/24/2021 08:59 Ordering Phys: Latoya Pérez MD ([email or web address]) Technologist: Andrea Chandler Exam Location: [facility] [place] Indication: SOB, CHEST PAIN BP: 158 / 111 HR: 74 Rhythm: Sinus Technical Quality: Adequate MEASUREMENTS (Male / Female) Normal Values 2D ECHO LV Diastolic Diameter PLAX 4.0 cm 4.2 - 5.9 / 3.9 - 5.3 cm LV Systolic Diameter PLAX 2.5 cm IVS Diastolic Thickness 0.9 cm 0.6 - 1.0 / 0.6 - 0.9 cm IVS Systolic Thickness 1.4 cm LVPW Diastolic Thickness 1.1 cm 0.6 - 1.0 / 0.6 - 0.9 cm LVPW Systolic Thickness 1.5 cm LVOT Diameter 2.0 cm LV Ejection Fraction 2D Teich 68.9 % LV Ejection Fraction MOD 2C 71.7 % LV Ejection Fraction 2C AL 71.7 % LA Diameter 3.5 cm LA Width 3.3 cm LA Height 4.1 cm RA Width 2.8 cm RA Height 4.1 cm DOPPLER AV Peak Velocity 144.0 cm/s LVOT Peak Velocity 102.0 cm/s AV Area Cont Eq vti 2.3 cm squared AV Area Cont Eq pk 2.2 cm squared MV Area PHT 5.0 cm squared Mitral E to A Ratio 0.6 MV E' Velocity 35.0 cm/s Mitral E to MV E' Ratio 5.2 Mitral E to LV E' Lateral Ratio 5.3 Mitral E to LV E' Septal Ratio 5.2 TR Peak Velocity 245.0 cm/s TR Peak Gradient 24.0 mmHg Right Atrial Pressure 3.0 mmHg Pulmonary Artery Systolic Pressu 27.0 mmHg FINDINGS Left Ventricle Normal left ventricular size and systolic function, EF 67 %. No regional wall motion abnormalities. Grade I/IV diastolic dysfunction (abnormal relaxation filling pattern), normal to mildly elevated filling pressures. Right Ventricle The right ventricle is normal in size and function. Right Atrium The right atrium is normal in size. Left Atrium The left atrium is normal in size. Mitral Valve Thickened mitral valve. Trace to mild mitral valve regurgitation. Aortic Valve Thickened aortic valve. Tricuspid Valve Trace tricuspid valve regurgitation. Pulmonic Valve No gross abnormalities noted Pericardium Normal pericardium without effusion. Aorta Normal ascending aorta dimension. CONCLUSIONS Normal left ventricular size and systolic function, EF 67 %. No regional wall motion abnormalities. Grade I/IV diastolic dysfunction (abnormal relaxation filling pattern), normal to mildly elevated filling pressures. Thickened mitral valve. Trace to mild mitral valve regurgitation. Trace tricuspid valve regurgitation. There is no pericardial effusion. There are no intracardiac masses. No previous study is available for comparison. Dr Latoya Pérez MD [facility] (Electronically Signed) Final Date: 24 February 2021 14:28 S
== END 2021-02-24 08:38 | disposition home or self-care (01) ==
LOC: US 08:39
PROVIDERS: PCP Family Medicine; Visit Provider Internal Medicine Cardiovascular Disease
DX: R06.00 Dyspnea, unspecified (principal); R00.2 Palpitations; R07.9 Chest pain, unspecified; I08.1 Rheumatic disorders of both mitral and tricuspid valves
CPT/HCPCS: 93306

== ENCOUNTER 2021-04-25 08:58 | Outpatient (CLI) | payer OTHER, SELFPAY ==
[2021-04-25 09:37] LABS: Basophils # 0.1 10^3/uL (0.0-0.1); Basophils % 0.9 %; Eosinophils # 0.3 10^3/uL (0.0-0.8); Hematocrit 44.1 % (37.0-47.0); Hemoglobin 14.7 g/dL (11.5-15.3); Lymphocytes # 2.7 10^3/uL (0.8-4.8); Lymphocytes % 21.1 %; Mean Corpuscular HGB Conc 33.3 g/dL (30.0-36.0); Mean Corpuscular Hemoglobin 30.7 pg (28.0-34.0); Mean Corpuscular Volume 92.1 fl (81-99); Mean Platelet Volume 12.3 fL (7.4-10.4); Monocytes # 0.7 10^3/uL (0.2-0.9); Monocytes % 5.3 %; Neutrophils # 9.11 10^3/uL (1.8-7.7); Neutrophils % 70.4 %; Nucleated Red Blood Cells % 0 %; Platelet Count 301 10^3/cmm (130-400); Red Blood Count 4.79 10^6/uL (4.1-5.3); Red Cell Distribution Width 13.2 % (12.1-15.1)
[2021-04-25 10:07] LABS: Anion Gap 18.5 (5-19); Blood Urea Nitrogen 9 mg/dL (6-20); Calcium 8.3 mg/dL (8.5-10.5); Carbon Dioxide 20 mmol/L (22-29); Chloride 106 mmol/L (98-107); Glomerular Filtration Rate 85.6 mL/min (90-130); Glucose 81 mg/dL (65-115); Osmolality Calculated 288 mOsm/kg (285-295); Potassium 4.5 mmol/L (3.5-5.1); Sodium 140 mmol/L (136-145)
== END 2021-04-25 08:59 | disposition home or self-care (01) ==
LOC: LAB 09:02
PROVIDERS: PCP Family Medicine; Visit Provider Internal Medicine Cardiovascular Disease
DX: R93.1 Abnormal findings on diagnostic imaging of heart and coronary circulation (principal)
CPT/HCPCS: 36415; 80048; 85025; 86850; 86900

== ENCOUNTER 2021-04-28 13:45 | Outpatient (CLI) | payer OTHER, SELFPAY ==
[2021-04-28 15:41] LABS: INR 0.93 (0.83-1.21); Prothrombin Time (Patient) 12.8 Seconds (12.0-15.1)
== END 2021-04-28 13:46 | disposition home or self-care (01) ==
LOC: LAB 13:47
PROVIDERS: PCP Family Medicine; Visit Provider Internal Medicine Cardiovascular Disease
DX: R93.1 Abnormal findings on diagnostic imaging of heart and coronary circulation (principal)
CPT/HCPCS: 36415; 85610; 87635

== ENCOUNTER 2021-05-01 07:41 | Outpatient (CLI) | payer OTHER, SELFPAY ==
[2021-05-01] VITALS (13 sets, daily range): BP systolic 123–142; BP diastolic 76–90; PULSE 63–70; RESP 13–20; TEMP 36.6; O2SAT 93–98; BMI 27.4
--- NOTE | 2021-05-01 07:30 | XACV_ITS ---
Ht: 160 cm Wt: 70 kg BSA: 1.79 m2 Gender: Female : 1960 Any Known Allergies: Penicillins Exam Priority: Routine Procedure(s): Procedure Description: Diagnostic procedure Procedure Description: Left Heart Catheterization Procedure Description: Left ventriculography Procedure Description: Coronary Angiography Beto JOSE; Diagnostic Cath Status: Elective Diagnostic Findings * No disease noted in the Left Main, Left Anterior Descending, Right, or Circumflex coronary arteries. * Coronary angiography shows right dominance. * Left main is a short medium caliber vessel with no significant stenotic lesions. * The left anterior descending artery is a medium caliber tortuous vessel with minimal intimal irregularities in the mid segment. The artery appears to wrap around the LV apex minimally. The first diagonal branch was found to have a 20 to 30% diffuse irregular narrowing in the proximal segment. No other significant stenotic lesions were noted.. * The left circumflex artery is a medium caliber vessel which gives off a large obtuse marginal branch. No significant stenotic lesions were noted. * Right coronary artery is a medium caliber dominant vessel which was found to have no significant stenotic lesions. Conclusions 1. This is a 61-year-old white female with history of hypertension, dyslipidemia and smoking abuse, presents with complaints of chest pain and shortness of breath. She had a myocardial perfusion imaging which revealed a small areas of reversible defect in the apical lateral wall region, suggestive of ischemia in the distribution of the left circumflex artery. In view of the ongoing and worsening symptoms, in order to further evaluate the coronary status, a cardiac catheterization was recommended. Patient underwent left heart catheterization with left and right coronary angiogram and LV angiogram today. The findings are as follows. 2. Mild disease in the left anterior descending artery. Right dominant coronary circulation. Normal LV ejection fraction 55%. Some features of left ventricular diastolic dysfunction. Normal LV ejection fraction of 55%.. Recommendations * Continue current medical management and risk factor modification. Diagnostic RX Recommendation: medical therapy and/or counseling LV EDP: 17 mmHg Ventriculography Ejection Fraction: 55.0 % Pressures Phase:Rest AO : 102 / 78 ( 90 ) @ 7:17:00 AM 104 / 76 ( 90 ) @ 7:23:00 AM 136 / 80 ( 106 ) @ 7:29:00 AM 136 / 80 ( 106 ) @ 7:29:00 AM LV : 135 / -6 / 18 @ 7:28:00 AM 135 / -4 / 20 @ 7:29:00 AM 136 / -4 / 21 @ 7:29:00 AM Valves Phase:DefaultPhase AV : 0.0 @ 9:35:42 AM AV Mean Gradient: 0.0 @ 9:35:42 AM Clinical Evaluation EBL: 5mL-10mL Procedural Details Procedure Consent Obtained. Pre-Procedure Time Out. Identified patient by full name and date of as verbalized by the patient/guarantor. Does the consent match the physician's order: Yes. Accurate & Complete Informed Consent: Yes. Inpatient/Outpatient History & Physical on Chart: Yes. If H&P is completed, is and addenduem needed: Yes; If yes, is the addendum complete: N/A. Relevant Radiology Images available: Yes. Visualize and Verify Site with Patient/Guarantor: N/A. The risks, benefits, and alternatives of sedation and/or procedure were discussed by physician. The patient agrees to continue. Procedure started. [facility] Clinical Fraility Score: 3: Managing Well. Clinical Review Specialist Indications: Worsening Angina. Chest Pain Symptom Assessment: Typical Angina Symptoms. Correct patient, site and procedure confirmed by cath team. Current diagnosis: Chest Pain. PERRLA. Strong, equal hand loom overhauler bilaterally. Lungs clear x 5 lobes. IV Site on Arrival: 20 gauge in the left anticubital. IV Fluids: 0.9% NaCl at KVO. 0 mL infused prior to labor specialist. Pre Procedural Pulses: right dorsalis pedis was 1+. Pre Procedural Pulses: left dorsalis pedis was Doppled. Pre Procedural Pulses: bilateral posterior tibial was 1+. Pre Procedural Pulses: bilateral radial was 3+. Oxygen started at 2liters/min via nasal canula. right groin was prepped with chloroprep then draped in the usual sterile fashion. right radial was prepped with chloroprep then draped in the usual sterile fashion. Physician notified. Baseline sample Acquired. HR: 64 BPM. Physician arrived. Physician scrubbed in. Immediate Pre-Procedure Time Out. Correct Patient: Yes; Correct Procedure: Yes; Correct Site: Yes; Correct Patient Position: Yes; Correct Supplies: Yes; Dried Flammable Prep: Yes; Blood Products Available: N/A;. Lidocaine 1% infiltrated to the right radial. Arterial access obtained. A 5 korean Raheel catheter in over wire. Multiple views taken of left coronary artery. Catheter redirected to the RCA. Catheter removed over the exchange wire. A 5 korean JR4 catheter in over wire. Multiple views taken of right coronary artery. Catheter removed over the exchange wire. A 5 korean Angled Pig catheter in over wire. EDP Sample taken: LV 135/-7,18; HR: 65 BPM; SpO2: 95%. LV gram performed in WILCOX @ 10 mL/second for a total of 30 mL. EDP Sample taken: LV 135/-5,20; HR: 66 BPM; SpO2: 96%. Pullback taken: LV 136/-5,21; AO 136/80(106); Mean: 0mmHg, Peak to Peak: 0mmHg, SEP: 5sec/min; HR: 66 BPM; SpO2: 97%. Catheter removed over the exchange wire. Physician scrubbed out. A TR Band was successful obtaining hemostatsis at the Right Radial artery insertion site. Post Procedure: Pulses reassessed and unchanged. PERRLA. Strong, equal hand loom overhauler bilaterally. No VTE prophylaxis required. Medication's Wasted: Heparin = 1000 units. Medication's Wasted: Lidocaine 1% = 18 mL. Medication's Wasted: Nitro = 49.8 mg. Total IV fluids: 250 mL. Contrast type used: Visipaque 320 mgI/mL, 500 mL bottle. Post-op diagnosis: Mild CAD, High EDP. Complications: None. Vital chart was stopped. Estimated blood loss: 5mL-10mL. Responsiveness - Normal response to verbal stimuli; alert and oriented, PERRLA. Airway - Unaffected, no intervention required; spontaneous ventilation. Circulation: W/N/L, pulses unchanged. Nausea/Vomiting: No. Procedure completed. [facility] Site: Right Radial artery Sheath Size: 6 Fr Hemostasis Method: TR Band Hemostasis Success: Successful Procedure Medications Start: 9:04 AM Stop: 9:04 AM Medication: Versed Amount: 1 mg Route: I.V. Start: 9:04 AM Stop: 9:04 AM Medication: Fentanyl Amount: 50 mcg Route: I.V. Start: 9:09 AM Stop: 9:09 AM Medication: Versed Amount: 1 mg Route: I.V. Start: 9:09 AM Stop: 9:09 AM Medication: Fentanyl Amount: 50 mcg Route: I.V. Start: 9:14 AM Stop: 9:14 AM Medication: Verapamil Amount: 5 mg Route: I.A. Start: 9:14 AM Stop: 9:14 AM Medication: Nitrogylcerin Amount: 200 mcg Route: I.A. Start: 9:14 AM Stop: 9:14 AM Medication: 0.9% Saline Amount: 250 ml Route: I.V. bolus Start: 9:16 AM Stop: 9:16 AM Medication: Heparin Amount: 5000 units Route: I.V. I, the attending physician, have reviewed and verified all procedure medications. Yes, all medications given per verbal order History/Risk Factors Hypertension: Yes Dyslipidemia: Yes Peripheral Arterial Disease (PAD): No Myocardial Infarction (NV): No Obesity: No Renal Disease: No Tobacco Use: Current/Recent(w/in 1 year) Prior Interventions PCI: No CABG: No Valve Surgery: No Report Signatures Finalized by Dr Latoya Pérez MD [facility] on 05/01/2021 06:42 PM
[2021-05-01] MEDS: diphenhydrAMINE 50 mg Capsule PO (08:34)
--- NOTE | 2021-05-01 08:52 | W.PM.OPSUD ---
Surgery/Procedure H&P Update DATE OF PROCEDURE: May 01, 2021 DATE H&P PERFORMED: 04/25/21 H&P UPDATE INFORMATION: I have reviewed H&P completed within last 30 days, I have examined patient prior to procedure and No changes to prior documentation PREOP DIAGNOSIS: ASHD PRIMARY INDICATION FOR PROCEDURE: Abnormal MPI PLANNED PROCEDURE: Operation Date: 05/01/21 08:30 Proposed Procedures p Cardiac Catheterization(Left) - Latoya Pérez MD PATIENT REASSESSED PRIOR TO SEDATION, WITH NO CHANGE NOTED: Yes PHYSICAL EXAM: alert, oriented x 3, clear to auscultation bilaterally, regular rate & rhythm and operative site marked AIRWAY EVAL/ANESTHESIA PLAN: normal airway, see other exam findings, ASA II, Monitored Anesthesia, Local Anesthesia, Risks, benefits & alternatives of sedation and/or procedure discussed and Patient agrees to continue as planned
--- NOTE | 2021-05-01 09:45 | PC.NURSE ---
recovery received pt from rags laborer post diagnostic [facility]. tr band on right wrist with no hematoma or bruising noted. pt complains of no pain. alert and oriented x3. educated pt of restrictions and pt verbalized understanding. will continue to educate throughout recovery. plan to dc after 3 hrs
== END 2021-05-01 12:52 | disposition home or self-care (01) ==
PROVIDERS: PCP Family Medicine; Visit Provider Internal Medicine Cardiovascular Disease
DX: R93.1 Abnormal findings on diagnostic imaging of heart and coronary circulation (principal); R00.2 Palpitations; I10 Essential (primary) hypertension; E78.5 Hyperlipidemia, unspecified; Z77.22 Contact with and (suspected) exposure to environmental tobacco smoke (acute) (chronic); R07.9 Chest pain, unspecified; R06.02 Shortness of breath; I25.10 Atherosclerotic heart disease of native coronary artery without angina pectoris
CPT/HCPCS: 36415; 93452; C1769; C1887; C1894; J1644; J2250; J3010; J3490; J7030; Q0163; Q9967

== ENCOUNTER → 2021-05-09 10:48 | Outpatient (BNVA) | payer OTHER, SELFPAY | PROVIDERS: PCP Family Medicine; Visit Provider Nurse Practitioner Family | DX: Z09 Encounter for follow-up examination after completed treatment for conditions other than malignant neoplasm (principal); I10 Essential (primary) hypertension | CPT/HCPCS: 80048 ==

== ENCOUNTER 2021-10-26 11:17 | Outpatient (CLI) | payer OTHER, MEDICAID, SELFPAY ==
--- NOTE | 2021-10-26 11:15 | US_ITS ---
WS: [id number] ULTRASOUND THYROID TECHNIQUE: Ultrasound of the thyroid. CLINICAL INFORMATION: thyroid nodule COMPARISON: October 26, 2020 FINDINGS: Thyroid: Right and left thyroid lobes are normal in size and echotexture. Multiple complex cystic nod ules bilaterally similar to previous. 3 nodules in the RIGHT and one on the LEFT. Right thyroid lobe: 5.2 cm x 1.6 cm x 2.1 cm Left thyroid lobe: 4.3 cm x 1.1 cm x 1.8 cm. Isthmus: 0.2 mm. Cervical lymphadenopathy: None. US/US thyroid [id number] IMPRESSION: 1. No significant changes compared to previous. 2. Stable bilateral complex thyroid nodules greater on the RIGHT. 3. Largest on the RIGHT primarily cystic measuring 1.0 x 0.8 x 3.9 cm and larg est on the LEFT complex cystic measuring 1.1 x 0.6 x 0.8 cm
== END 2021-10-26 11:18 | disposition home or self-care (01) ==
LOC: RAD 11:19
PROVIDERS: PCP Family Medicine; Visit Provider Family Medicine
DX: E04.1 Nontoxic single thyroid nodule (principal)
CPT/HCPCS: 76536

== ENCOUNTER → 2021-12-29 13:46 | Outpatient (BNVA) | payer OTHER, MEDICAID, SELFPAY | PROVIDERS: PCP Family Medicine; Visit Provider Family Medicine | DX: E78.5 Hyperlipidemia, unspecified (principal); J01.90 Acute sinusitis, unspecified; B96.89 Other specified bacterial agents as the cause of diseases classified elsewhere; M62.830 Muscle spasm of back | CPT/HCPCS: 80053; 80061 ==

== ENCOUNTER 2022-01-12 13:30 | Outpatient (RCR) | payer OTHER, MEDICAID, SELFPAY | END 2022-01-24 23:59 | disposition home or self-care (01) | LOC: SPT 13:30 | PROVIDERS: PCP Family Medicine; Visit Provider Family Medicine | DX: M54.6 Pain in thoracic spine (principal); G89.29 Other chronic pain | CPT/HCPCS: 97110; 97162 ==

== ENCOUNTER 2022-01-25 06:00 | Outpatient (RCR) | payer OTHER, MEDICAID, SELFPAY | END 2022-02-23 23:59 | disposition home or self-care (01) | LOC: SPT 06:00 | PROVIDERS: PCP Family Medicine; Visit Provider Family Medicine | DX: M54.6 Pain in thoracic spine (principal); G89.29 Other chronic pain | CPT/HCPCS: 97110 ==

== ENCOUNTER → 2022-10-16 14:29 | Outpatient (BNVA) | payer MEDICAID, SELFPAY | PROVIDERS: PCP Family Medicine; Visit Provider Family Medicine | DX: B35.1 Tinea unguium (principal); N89.8 Other specified noninflammatory disorders of vagina | CPT/HCPCS: 80053; 87070; 87205 ==

== ENCOUNTER → 2022-10-25 16:58 | Outpatient (BNVA) | payer MEDICAID, SELFPAY | PROVIDERS: PCP Family Medicine; Visit Provider Family Medicine | DX: R53.83 Other fatigue (principal) | CPT/HCPCS: 84443 ==

== ENCOUNTER 2022-11-01 13:50 | Outpatient (CLI) | payer MEDICAID, SELFPAY ==
--- NOTE | 2022-11-01 14:00 | XR_ITS ---
WS: [id number] SCREENING DEXA SCAN Apieron CLINICAL INFORMATION: postmenopausal COMPARISON: None. FINDINGS: The L1-L4 bone mineral density measures 0.938 g/cm2. This corresponds to a T score score of -2.0 and Z score of -1.2. Left femoral neck bone mineral density measures 0.934 g/cm2. This corresponds to a T score of -0.6 an d Z score of 0.1. Right femoral neck bone mineral density measures 0.876 g/cm2. This corresponds to a T score -1.0of an d Z score of -0.4. Mean femoral neck bone mineral density measures 0.905 g/cm2. This corresponds to a T score of -0.8 an d Z score of -0.2. XR/XR DEXA axial skeleton* [id number] IMPRESSION: Osteopenia lumbar spine. Normal bone mineralization femoral necks at the upper end of the range. Patient's FRAX calculated 10 year probability for major osteoporotic fracture i s 27.0 % and osteoporotic hip fracture is 2.9%.
--- NOTE | 2022-11-01 14:28 | MM_ITS ---
WS: [id number] Bilateral screening 3D tomosynthesis digital mammogram, 11/01/2022 Clinical Data: screening mammogram Comparison: 07/24/2019, 06/01/2015, 10/26/2014, 09/22/2014. Findings: The breast parenchymal pattern shows fibroglandular tissue. No spiculated masses or clustered calcifi cations are seen. There are no secondary signs of carcinoma. There are small benign calcifications in both breasts. There are small lymph nodes in both axilla. MM/[place] [id number] Impression: 1. Negative bilateral mammogram unchanged. 2. Recommend annual screening mammograms. BIRADS: 1-Negative FOLLOW UP: 1 Year Follow-up The CAD inventory checker was used.
== END 2022-11-01 13:51 | disposition home or self-care (01) ==
PROVIDERS: PCP Family Medicine; Visit Provider Family Medicine
DX: Z12.31 Encounter for screening mammogram for malignant neoplasm of breast (principal); Z13.820 Encounter for screening for osteoporosis; Z78.0 Asymptomatic menopausal state; M85.88 Other specified disorders of bone density and structure, other site
CPT/HCPCS: 77063; 77067; 77080

== ENCOUNTER → 2023-02-27 13:53 | Outpatient (BNVA) | payer MEDICAID, SELFPAY | PROVIDERS: PCP Family Medicine; Visit Provider Internal Medicine Rheumatology | DX: M25.50 Pain in unspecified joint (principal); M79.7 Fibromyalgia; M51.16 Intervertebral disc disorders with radiculopathy, lumbar region; M19.90 Unspecified osteoarthritis, unspecified site; Z79.899 Other long term (current) drug therapy; M45.6 Ankylosing spondylitis lumbar region; Z71.85 Encounter for immunization safety counseling; M17.11 Unilateral primary osteoarthritis, right knee | CPT/HCPCS: 36415; 72100; 73130; 73562; 73630; 80076; 82306; 82565; 85025; 85651; 86140; 86160; 86162; 86200; 86235; 86255; 86376; 86431; 86480; 86704; 86803; 86812; 87340 ==

== ENCOUNTER → 2023-05-29 13:31 | Outpatient (BNVA) | payer MEDICAID, SELFPAY | PROVIDERS: PCP Family Medicine; Visit Provider Anesthesiology Pain Medicine | DX: M16.9 Osteoarthritis of hip, unspecified (principal); M25.559 Pain in unspecified hip | CPT/HCPCS: 77002 ==

== ENCOUNTER → 2023-05-30 13:56 | Outpatient (BNVA) | payer MEDICAID, SELFPAY | PROVIDERS: PCP Family Medicine; Visit Provider Internal Medicine Rheumatology | DX: Z79.899 Other long term (current) drug therapy (principal); M19.90 Unspecified osteoarthritis, unspecified site | CPT/HCPCS: 36415; 80076; 82306; 82310; 82565; 85025; 86140 ==

== ENCOUNTER → 2023-08-12 12:51 | Outpatient (BNVA) | payer MEDICAID, SELFPAY | PROVIDERS: PCP Family Medicine; Visit Provider Anesthesiology Pain Medicine | DX: M16.9 Osteoarthritis of hip, unspecified (principal) | CPT/HCPCS: 77002 ==

== ENCOUNTER → 2023-09-10 09:35 | Outpatient (BNVA) | payer MEDICAID, SELFPAY | PROVIDERS: PCP Family Medicine; Visit Provider Anesthesiology Pain Medicine | DX: M54.50 Low back pain, unspecified (principal); G89.29 Other chronic pain | CPT/HCPCS: 72110 ==

== ENCOUNTER 2023-09-18 10:51 | Outpatient (CLI) | payer MEDICAID, SELFPAY ==
[2023-09-18 11:04] VITALS: PULSE 68; RESP 18; O2SAT 98
[2023-09-18] MEDS: albuterol 2.5 mg/3 mL Neb INHALATION (11:04)
[2023-09-18 11:08] VITALS: PULSE 71
== END 2023-09-18 10:52 | disposition home or self-care (01) ==
PROVIDERS: PCP Family Medicine; Visit Provider Family Medicine
DX: R06.00 Dyspnea, unspecified (principal); F17.210 Nicotine dependence, cigarettes, uncomplicated
CPT/HCPCS: 94060; 94726; 94729; J7613

== ENCOUNTER 2023-10-30 09:28 | Outpatient (CLI) | payer MEDICAID, SELFPAY ==
--- NOTE | 2023-10-30 09:57 | XR_ITS ---
WS: [id number] XR hip LT 2-3V wo/w pel* [id number] REASON FOR EXAM: M25.552 - Pain in left hip FINDINGS: No fracture or focal bone lesion. Mild narrowing of the joint space with mild subchondral sclerosis and osteophytosis of the acetabulum . No soft tissue abnormality. XR/XR hip LT 2-3V wo/w pel* [id number] IMPRESSION: Mild osteoarthritis of the left hip.
[2023-10-30 09:59] LABS: Basophils # 0.2 10^3/uL (0.0-0.1); Basophils % 1.8 %; Eosinophils # 0.2 10^3/uL (0.0-0.8); Eosinophils % 2.5 %; Hematocrit 41.3 % (36-47); Lymphocytes # 2.5 10^3/uL (0.8-4.8); Lymphocytes % 28.3 %; Mean Corpuscular HGB Conc 33.2 g/dL (30-55); Mean Corpuscular Volume 90.6 fl (85-98); Mean Platelet Volume 12.5 fL (7.4-10.4); Monocytes # 0.9 10^3/uL (0.2-0.9); Monocytes % 9.7 %; Neutrophils # 5.14 10^3/uL (1.8-7.7); Neutrophils % 57.4 %; Nucleated Red Blood Cells % 0 %; Platelet Count 217 10^3/cmm (157-399); Red Blood Count 4.56 10^6/uL (3.85-5.65); Red Cell Distribution Width 15.2 % (12.1-15.1); White Blood Count 8.95 10^3/uL (3.29-11.43)
[2023-10-30 10:24] LABS: Alanine Aminotransferase 17 U/L (0-33); Albumin Level 3.6 g/dL (3.5-5.2); Alkaline Phosphatase 112 U/L (35-105); Aspartate Amino Transferase 19 U/L (0-32); C Reactive Protein 10.9 mg/L (0.0-4.9); Globulin 3.1 g/dL (1.3-4.6); Glomerular Filtration Rate 85.1 mL/min (90-130); Total Bilirubin 0.3 mg/dL (0.15-1.2); Total Protein 6.7 g/dL (6.6-8.7)
== END 2023-10-30 09:29 | disposition home or self-care (01) ==
PROVIDERS: PCP Family Medicine; Visit Provider Internal Medicine Rheumatology
DX: Z79.899 Other long term (current) drug therapy (principal); M19.90 Unspecified osteoarthritis, unspecified site; M25.552 Pain in left hip
CPT/HCPCS: 36415; 73502; 80076; 82565; 85025; 86140

== ENCOUNTER 2023-12-31 13:31 | Outpatient (CLI) | payer MEDICAID, SELFPAY ==
--- NOTE | 2023-12-31 13:34 | XR_ITS ---
WS: [id number] XR shoulder LT min 2V* [id number] REASON FOR EXAM: M25.512 - Pain in left shoulder FINDINGS: No fracture or focal bone lesion. The acromioclavicular joint is widened. There is mild subchondral sclerosis and moderate osteophytosi s. The glenohumeral joint is not optimally demonstrated however there appears to be at least moderate na rrowing with moderate subchondral sclerosis and cystic change in the glenoid. There is mild to modera te osteophytosis of the humeral head. There is significant sclerotic and cystic change in the greater biceps tuberosity. XR/XR shoulder LT min 2V* [id number] IMPRESSION: Mild osteoarthritis in the acromioclavicular joint. Moderate to significant osteoarthritis in the glenohumeral joint. Significant rotator cuff tendon arthropathy.
== END 2023-12-31 13:32 | disposition home or self-care (01) ==
LOC: RAD 13:32
PROVIDERS: PCP Family Medicine; Visit Provider Family Medicine
DX: M19.012 Primary osteoarthritis, left shoulder (principal); M75.102 Unspecified rotator cuff tear or rupture of left shoulder, not specified as traumatic; M25.712 Osteophyte, left shoulder
CPT/HCPCS: 73030

== ENCOUNTER 2024-01-15 12:15 | Outpatient (CLI) | payer MEDICAID, SELFPAY ==
--- NOTE | 2024-01-15 12:19 | MM_ITS ---
WS: [id number] BILATERAL 3D TOMOSYNTHESIS DIGITAL DIAGNOSTIC MAMMOGRAPHY WITH CAD CLINICAL INFORMATION: hx of breast ca HISTORY: Remote history of bilateral breast cancer. COMPARISON: 2022 TECHNIQUE: Bilateral CC, MLO, and ML views. FINDINGS: Scattered fibroglandular densities bilaterally. Incidental punctate and lucent centered calcification s. Stable cluster calcifications LEFT breast. No suspicious focal mass, asymmetry, calcifications, or architectural distortion. No evidence of jarret gnancy. MM/[place] [id number] IMPRESSION: BI-RADS: 2-Benign FOLLOW UP: 1 Year Follow-up Recommend return to annual diagnostic mammography.
== END 2024-01-15 12:16 | disposition home or self-care (01) ==
LOC: RAD 12:15
PROVIDERS: PCP Family Medicine; Visit Provider Family Medicine
DX: Z85.3 Personal history of malignant neoplasm of breast (principal); R92.323 Mammographic fibroglandular density, bilateral breasts; R92.1 Mammographic calcification found on diagnostic imaging of breast
CPT/HCPCS: 77062; G0279

== ENCOUNTER → 2024-01-28 10:44 | Outpatient (BNVA) | payer MEDICAID, SELFPAY | PROVIDERS: PCP Family Medicine; Visit Provider Physician Assistant | DX: M25.512 Pain in left shoulder (principal); M25.511 Pain in right shoulder; M75.42 Impingement syndrome of left shoulder; M19.012 Primary osteoarthritis, left shoulder | CPT/HCPCS: 73030 ==

== ENCOUNTER 2024-03-11 12:40 | Outpatient (CLI) | payer MEDICAID, SELFPAY ==
--- NOTE | 2024-03-11 13:00 | MR_ITS ---
WS: [id number] MRI LEFT SHOULDER NONCONTRAST TECHNIQUE: Sagittal T2, coronal T1, T2 and proton density imaging. Axial gradient PDE imaging. CLINICAL INFORMATION: rotator cuff impingement COMPARISON: None. FINDINGS: Prior postoperative changes AC joint with resection of the distal clavicle. Subchondral cystic change along the greater tuberosity. Evidence of prior rotator cuff repair with rotator cuff anchors. Susce ptibly artifact degrades some images. Tendon repair appears intact. Distal supraspinatus appears inta ct. No tendon retraction. Tiny intrasubstance tear distal supraspinatus with tendinopathy. Normal inf raspinatus. Normal teres minor. Subscapularis tendon appears intact. Biceps tendon appears intact wit hin the bicipital groove. Tendinopathy intra-articular biceps tendon. Moderate to advanced degenerative narrowing of the glenoh umeral articulation with hypertrophic spurring. Degenerative fraying of the glenoid labrum. MR/MR shoulder LT wo con* [id number] IMPRESSION: 1. Prior postoperative changes rotator cuff repair. Rotator cuff repair appear s intact. No tendon retraction. 2. Tiny intrasubstance tear distal supraspinatus with tendinopathy. 3. Prior resection of the distal clavicle. 4. Subscapularis tendon appears intact. 5. Normal biceps tendon in the bicipital groove. 6. Tendinopathy intra-articular biceps tendon. 7. Moderate to advanced degenerative narrowing of the glenohumeral articulatio n with hypertrophic spurring.
== END 2024-03-11 12:41 | disposition home or self-care (01) ==
LOC: RAD 12:40
PROVIDERS: PCP Family Medicine; Visit Provider Physician Assistant
DX: M75.42 Impingement syndrome of left shoulder (principal); M19.012 Primary osteoarthritis, left shoulder; Z79.899 Other long term (current) drug therapy; Z98.890 Other specified postprocedural states; M85.412 Solitary bone cyst, left shoulder; M75.21 Bicipital tendinitis, right shoulder
CPT/HCPCS: 36415; 73221; 80076; 82565; 85025; 85651; 86140

== ENCOUNTER 2024-07-07 15:22 | Outpatient (CLI) | payer MEDICAID, SELFPAY ==
[2024-07-07 15:45] LABS: Basophils % 0.3 %; Eosinophils % 0.2 %; Hematocrit 41.4 % (36-47); Lymphocytes # 2.4 10^3/uL (0.8-4.8); Lymphocytes % 15.9 %; Mean Corpuscular HGB Conc 32.9 g/dL (30-55); Mean Corpuscular Hemoglobin 29.8 pg (27-33); Mean Corpuscular Volume 90.6 fl (85-98); Mean Platelet Volume 11.6 fL (7.4-10.4); Monocytes # 1.1 10^3/uL (0.2-0.9); Monocytes % 7.2 %; Neutrophils # 11.32 10^3/uL (1.8-7.7); Neutrophils % 75.7 %; Nucleated Red Blood Cells % 0 %; Platelet Count 299 10^3/cmm (157-399); Red Blood Count 4.57 10^6/uL (3.85-5.65); Red Cell Distribution Width 14.9 % (12.1-15.1); White Blood Count 14.94 10^3/uL (3.29-11.43)
[2024-07-07 15:51] LABS: Erythrocyte Sedimentation Rate 2 mm/hr (0-15)
[2024-07-07 16:52] LABS: Alanine Aminotransferase 14 U/L (0-33); Albumin Level 4.1 g/dL (3.5-5.2); Alkaline Phosphatase 117 U/L (35-105); Aspartate Amino Transferase 13 U/L (0-32); Globulin 2.4 g/dL (1.3-4.6); Glomerular Filtration Rate 84.8 mL/min (90-130); Total Bilirubin 0.2 mg/dL (0.15-1.2); Total Protein 6.5 g/dL (6.6-8.7)
== END 2024-07-07 15:23 | disposition home or self-care (01) ==
LOC: LAB 15:23
PROVIDERS: PCP Family Medicine; Visit Provider Internal Medicine Rheumatology
DX: Z79.899 Other long term (current) drug therapy (principal)
CPT/HCPCS: 36415; 80076; 82565; 85025; 85651; 86140

== ENCOUNTER → 2024-07-28 11:54 | Outpatient (BNVA) | payer MEDICAID, SELFPAY | PROVIDERS: PCP Nurse Practitioner Family; Visit Provider Nurse Practitioner Family | DX: I10 Essential (primary) hypertension (principal); R53.83 Other fatigue | CPT/HCPCS: 80053; 80061; 82306; 82607; 82746; 83735; 84443; 85025 ==

== ENCOUNTER 2024-09-15 08:41 | Outpatient (CLI) | payer MEDICAID, SELFPAY ==
--- NOTE | 2024-09-15 09:00 | CT_ITS ---
WS: [id number] CT SINUSES TECHNIQUE: Noncontrast CT of the paranasal sinuses with coronal and sagittal reformatted images. CLINICAL INFORMATION: J32.9 - Chronic sinusitis, unspecified COMPARISON: None. DLP: 367.[address] scans at [facility] use at least one of these dose optimization techniques: automated exposure control; mA and/or kV adjustment per patient size (includes targeted exams where dose is matched to clinical indication); or iterative reconstruction. FINDINGS: LEFT maxillary sinusitis with air-fluid level and inspissated secretions. Opacification of the LEFT ostiomeatal unit. Trace mucosal thickening ethmoid air cells. Trace mucosal thickening RIGHT maxillary sinus. Sphenoid sinuses are well aerated. Mastoid air cells are well aerated. Normal posterior nasopharynx. Normal parapharyngeal fat. LEFT juanito bullosa. CT/CT sinus wo con* [id number] IMPRESSION: 1. LEFT maxillary sinusitis with air-fluid level and inspissated secretions. O pacification of the LEFT ostiomeatal unit. 2. Trace mucosal thickening in the ethmoid air cells and RIGHT maxillary sinus . 3. LEFT juanito bullosa. 4. Mild S-shaped nasal septal deviation measuring 3 mm.
== END 2024-09-15 08:42 | disposition home or self-care (01) ==
PROVIDERS: PCP Nurse Practitioner Family; Visit Provider Nurse Practitioner Family
DX: J32.0 Chronic maxillary sinusitis (principal); R93.89 Abnormal findings on diagnostic imaging of other specified body structures; J34.89 Other specified disorders of nose and nasal sinuses; J34.2 Deviated nasal septum
CPT/HCPCS: 70486

== ENCOUNTER → 2024-10-07 14:44 | Outpatient (BNVA) | payer MEDICAID, SELFPAY | PROVIDERS: PCP Nurse Practitioner Family; Visit Provider Nurse Practitioner Family | DX: R60.0 Localized edema (principal) | CPT/HCPCS: 80053; 82607; 82746; 85025 ==

== ENCOUNTER → 2024-10-21 15:29 | Outpatient (BNVA) | payer MEDICAID, SELFPAY | PROVIDERS: PCP Nurse Practitioner Family; Visit Provider Student in an Organized Health Care Education/Training Program | DX: M75.41 Impingement syndrome of right shoulder (principal); M25.511 Pain in right shoulder; M62.838 Other muscle spasm | CPT/HCPCS: 73030 ==

== ENCOUNTER → 2024-11-05 09:44 | Outpatient (BNVA) | payer MEDICAID, SELFPAY | PROVIDERS: PCP Nurse Practitioner Family; Visit Provider Nurse Practitioner Family | DX: R60.0 Localized edema (principal) | CPT/HCPCS: 80048; 83880 ==

== ENCOUNTER 2024-11-17 06:58 | Outpatient (CLI) | payer MEDICAID, SELFPAY ==
--- NOTE | 2024-11-17 07:15 | US_ITS ---
WS: [id number] RIGHT UPPER QUADRANT ULTRASOUND HISTORY: K76.89 - Other specified diseases of liver COMPARISON: 08/13/2019 Liver: 13.4 cm in length. Normal size liver. Several hepatic cysts are identified. The cysts have been previously described. The largest is slightly lobulated towards the diaphragmatic surface measuring 5.5 x 4.1 x 3.5 cm. This cyst has increased slightly in size. No solid masses. No intrahepatic duct dilatation. Portal Vein: Normal hepatopetal flow with monophasic waveform. Gallbladder: Normally distended gallbladder with no stones or wall thickening. CBD: 0.5 cm Pancreas: Normal size and echogenicity. Right kidney: 8.6 cm in length. Low normal size kidney. Pelvic cyst in the superior pole measures 1.7 x 1.6 x 2.2 cm. No solid mass or obstruction. Aorta and IVC: Unremarkable abdominal aorta and IVC. No ascites. US/US liver [id number] IMPRESSION: 1. Normal gallbladder. 2. Several hepatic cysts. The cyst have been previously described. The largest in the RIGHT lobe towards the diaphragmatic surface measures 5.5 x 4.1 x 3.5 c m and has increased in size. 3. Pelvic cyst superior RIGHT kidney.
== END 2024-11-17 06:59 | disposition home or self-care (01) ==
PROVIDERS: PCP Nurse Practitioner Family; Visit Provider Nurse Practitioner Family
DX: K76.89 Other specified diseases of liver (principal); N28.1 Cyst of kidney, acquired
CPT/HCPCS: 76705

== ENCOUNTER → 2024-11-18 13:17 | Outpatient (BNVA) | payer MEDICAID, SELFPAY | PROVIDERS: PCP Nurse Practitioner Family; Visit Provider Internal Medicine | DX: I10 Essential (primary) hypertension (principal); R06.09 Other forms of dyspnea; E78.5 Hyperlipidemia, unspecified | CPT/HCPCS: 93005 ==

== ENCOUNTER 2024-12-03 06:28 | Outpatient (CLI) | payer MEDICAID, SELFPAY ==
--- NOTE | 2024-12-03 06:30 | USCV_ITS ---
Albertina Soto Age: 64 Gender: F : 1960 Exam Date: 12/03/2024 06:46 Ordering Phys: Jaycob Fournier M.D ([email or web address]) Technologist: Exam Location: [facility] [place] Indication: cp mumur BP: 120 / 70 HR: 67 Rhythm: Sinus Technical Quality: Adequate MEASUREMENTS (Male / Female) Normal Values 2D ECHO LV Diastolic Diameter PLAX 4.2 cm 4.2 - 5.9 / 3.9 - 5.3 cm IVS Diastolic Thickness 1.5 cm 0.6 - 1.0 / 0.6 - 0.9 cm IVS Systolic Thickness 1.7 cm LVPW Diastolic Thickness 1.3 cm 0.6 - 1.0 / 0.6 - 0.9 cm LVPW Systolic Thickness 1.7 cm LVOT Diameter 2.4 cm LV Ejection Fraction 2D Teich 64.5 % LV Ejection Fraction MOD 4C 59.9 % LV Ejection Fraction MOD 2C 62.3 % LV Ejection Fraction 2C AL 62.0 % LA Diameter 2.8 cm Aorta at Sinotubular Diameter 2.7 cm IVC Diameter 1.8 cm M-MODE LA Ao Ratio MM 1.2 AV Cusp Separation MM 1.9 cm DOPPLER AV Peak Velocity 149.0 cm/s LVOT Peak Velocity 106.0 cm/s AV Area Cont Eq vti 3.3 cm squared AV Area Cont Eq pk 3.1 cm squared MV Area PHT 3.6 cm squared Mitral E to A Ratio 1.0 TV Peak Velocity 267.5 cm/s TR Peak Velocity 274.0 cm/s TR Peak Gradient 30.0 mmHg TV Peak E Velocity 102.0 cm/s PV Peak Velocity 101.0 cm/s FINDINGS Left Ventricle Left ventricle is normal in size. LV systolic function is normal with EF of 60-65%. No regional wall motion abnormalities are seen. Right Ventricle Normal in size and function Right Atrium Normal in size Left Atrium Normal in size Mitral Valve Structurally normal mitral valve. Mild mitral regurgitation Aortic Valve Structurally normal aortic valve. No significant stenosis or regurgitation. Tricuspid Valve Mild tricuspid regurgitation. Pulmonary artery systolic pressure is normal. Pulmonic Valve Not well visualized Pericardium Normal Aorta Normal in size IVC Appears to be normal CONCLUSIONS LV systolic function is normal with EF of 60-65%. Mild mitral regurgitation. Mild tricuspid regurgitation. Jaycob Fournier MD (Electronically Signed) Final Date: 09 December 2024 10:43 S
== END 2024-12-03 06:29 | disposition home or self-care (01) ==
LOC: RAD 06:29
PROVIDERS: PCP Nurse Practitioner Family; Visit Provider Internal Medicine
DX: R07.9 Chest pain, unspecified (principal); R06.02 Shortness of breath; I34.0 Nonrheumatic mitral (valve) insufficiency; I07.1 Rheumatic tricuspid insufficiency
CPT/HCPCS: 93306

== ENCOUNTER 2024-12-08 10:55 | Outpatient (CLI) | payer MEDICAID, SELFPAY ==
[2024-12-08 11:48] LABS: Hematocrit 40.6 % (36-47); Hemoglobin 13.30 g/dL (11.27-16.99); Mean Corpuscular HGB Conc 32.8 g/dL (30-55); Mean Corpuscular Hemoglobin 30.6 pg (27-33); Mean Corpuscular Volume 93.5 fl (85-98); Nucleated Red Blood Cells % 0 %; Platelet Count 367 10^3/cmm (157-399); Red Blood Count 4.34 10^6/uL (3.85-5.65); White Blood Count 12.59 10^3/uL (3.29-11.43)
[2024-12-08 12:09] LABS: Alanine Aminotransferase 15 U/L (0-33); Albumin Level 4.1 g/dL (3.5-5.2); Alkaline Phosphatase 87 U/L (35-105); Aspartate Amino Transferase 17 U/L (0-32); Globulin 2.8 g/dL (1.3-4.6); Total Protein 6.9 g/dL (6.6-8.7)
== END 2024-12-08 10:56 | disposition home or self-care (01) ==
PROVIDERS: PCP Nurse Practitioner Family; Visit Provider Internal Medicine Rheumatology
DX: Z79.899 Other long term (current) drug therapy (principal)
CPT/HCPCS: 36415; 80076; 82565; 85025; 85651; 86140

== ENCOUNTER 2024-12-08 11:19 | Day surgery (SDC) | payer MEDICAID, SELFPAY ==
[2024-12-08 12:05] VITALS: BP 121/70; PULSE 68; RESP 16; TEMP 36.2; O2SAT 97; BMI 28.3
--- NOTE | 2024-12-08 12:21 | ANES.PREANE2 ---
Pre-Anesthetic Assessment Height/Weight: Height 5 ft 3 in Weight 160 lb Temp Pulse Resp BP Pulse Ox O2 Del Method 97.2 F L 68 16 121/70 97 Room Air 12/08/24 12:05 12/08/24 12:05 12/08/24 12:05 12/08/24 12:05 12/08/24 12:05 12/08/24 12:05 Preop Diagnosis: Abdominal discomfort Operation Date: 12/08/24 13:00 Proposed Procedures p Colonoscopy 55069 G0105 Z12.11(Not Applicable) - Donte Mar MD Was Beta Page taken within 24 hours: N/A Was Clonidine taken within 24 hours: N/A Last intake: Intake Last Liquid Date 12/07/24 Last Liquid Time 20:00 Last Solid Date 12/06/24 Last Solid Time 19:30 Social No alcohol and No tobacco Quit smoking 4 years ago Exam alert and oriented x 3 Airway Submandibular: within normal limits Cervical ROM: within normal limits Mallampati: Class III Dentition: full Anesthetic Plan ASA status: 3 Anesthesia: MAC Other: No prior issues with anesthesia Completed bowel prep History of hypertension on amlodipine and metoprolol. Preop BP 121/70 GERD on omeprazole History of RA NICKIE, no CPAP Pulmonary nodules, no home O2 Plan for MAC anesthesia with local via surgeon Medications/Allergies Home Medications ?Medication ?Instructions ?Recorded ?Confirmed ?Last Taken ?Type nitroglycerin 0.4 mg sublingual 0.4 mg sublingual Q5M PRN chest 01/10/21 12/08/24 Unknown Rx tablet pain 30 days #30 tabs CPAP 6cwp with heated humidity #1 ea 05/30/21 12/08/24 Unknown Rx CPAP supplies #1 ea 10/05/22 12/08/24 Unknown Rx cholecalciferol (vitamin D3) 50 50 mcg PO DAILY 09/06/23 12/08/24 12/02/24 08:00 History mcg (2,000 unit) capsule alendronate 70 mg tablet (Fosamax) 70 mg PO .Q7days #12 tabs 07/28/24 12/08/24 11/29/24 07:00 Rx duloxetine 20 mg capsule,delayed 40 mg (2 x 20 mg) PO DAILY #180 07/28/24 12/08/24 12/02/24 08:00 Rx release caps duloxetine 60 mg capsule,delayed 60 mg PO DAILY #90 caps 07/28/24 12/08/24 12/02/24 08:00 Rx release (Cymbalta) trazodone 50 mg tablet 50 mg PO .qhs #90 tabs 07/28/24 12/08/24 12/01/24 21:00 Rx ibuprofen 800 mg tablet 800 mg PO Q8H #60 tabs 08/06/24 12/08/24 Unknown Rx rosuvastatin 5 mg tablet (Crestor) 5 mg PO DAILY #90 tabs 10/06/24 12/08/24 12/02/24 08:00 Rx folic acid 1 mg tablet 1 mg PO DAILY #90 tabs 11/04/24 12/08/24 12/02/24 08:00 Rx methotrexate sodium 2.5 mg tablet 15 mg (6 x 2.5 mg) PO .q7day #30 11/04/24 12/08/24 12/01/24 21:00 Rx tabs prednisone 20 mg tablet See Rx Instructions PO .COMPLEX 11/04/24 12/08/24 12/02/24 08:00 Rx PRN joint pain flare #30 tabs prednisone 5 mg tablet 5 mg PO DAILY #90 tabs 11/04/24 12/08/24 12/02/24 08:00 Rx pregabalin 200 mg capsule (Lyrica) 200 mg PO DAILY #90 caps 11/04/24 12/08/24 12/01/24 21:00 Rx ipratropium bromide 42 mcg (0.06 2 spray intranasal TID #15 mL 11/12/24 12/08/24 12/02/24 08:00 Rx %) nasal spray diclofenac sodium 1 % topical gel 4 g topical QID #100 grams 11/17/24 12/08/24 12/02/24 08:00 Rx (Arthritis Pain (diclofenac)) methocarbamol 500 mg tablet 500 mg PO TID PRN Muscle 11/30/24 12/08/24 12/01/24 21:00 Rx Spasms/pain 14 days #42 tabs amlodipine 10 mg tablet 10 mg PO BEDTIME 12/07/24 12/08/24 12/01/24 21:00 History budesonide-formoterol HFA 160 2 puff inhalation Q12H 12/07/24 12/08/24 12/01/24 21:00 History mcg-4.5 mcg/actuation aerosol inhaler (Symbicort) furosemide 20 mg tablet 20 mg PO DAILY 12/07/24 12/08/24 12/07/24 History metoprolol tartrate 37.5 mg tablet 37.5 mg PO BID 12/07/24 12/08/24 12/08/24 06:30 History nystatin 100,000 unit/mL oral 2 ml PO TID 12/07/24 12/08/24 12/02/24 08:00 History suspension omeprazole 40 mg capsule,delayed 40 mg PO BID 12/07/24 12/08/24 Unknown History release potassium chloride 10 mEq 10 meq PO DAILY 12/07/24 12/08/24 12/07/24 History capsule,extended release tizanidine 2 mg tablet 2 mg PO BEDTIME 12/07/24 12/08/24 12/01/24 21:00 History Allergies Allergy/AdvReac Type Severity Reaction Status Date / Time acetaminophen (From Tylenol) Allergy ALGY-Swell Verified 12/02/24 08:20 Lip/Tongue/Throat nalbuphine (From Nubain) Allergy AGITATION Verified 12/02/24 08:20 Penicillins Allergy ANAPHYLAXIS Verified 12/02/24 08:20 [facility] Anesthesia Medical History Seronegative rheumatoid arthritis of both hands High risk medication use Acute bacterial bronchitis Osteopenia Positive IESHA (antinuclear antibody) Immunization counseling Inflammatory arthritis Lumbar disc disease with radiculopathy Pedal edema Leg cramps Chest pain at rest Smoking Hypertension Shortness of breath Dyslipidemia Chronic sinusitis Rhinitis, allergic Nasal turbinate hypertrophy Deviated septum Right-sided chest pain Nicotine dependence, cigarettes, with unspecified nicotine-induced disorders Right lower lobe pulmonary nodule H/O fracture of tibia Fibromyalgia Seasonal affective disorder Surgical History S/P partial hysterectomy Due to endometrial cancer Status post bilateral salpingectomy H/O shoulder surgery BILATER H/O bone graft H/O lumpectomy H/O section Family History Grandmother CAD (coronary artery disease) Cancer Dementia Stroke Mother Lung disease Calcium deficiency disease Other Adopted Denies family history of Diabetes Clotting disorder Chronic kidney disease (CKD) Suicide Anesthesia complication Bleeding disorder Social History Smoking and tobacco/nicotine status: former use of tobacco/nicotine Second hand smoke exposure: Yes Alcohol intake: former Year of sobriety/quit date alcohol: 3 Substance/Drug Use: never Adopted: Yes Lives independently: Yes Household members: significant other Marital status: Life Partner service: No Current occupational status: retired Current gender identity: Female Special carlos manuel needs: No Data Anesthesia Cardiac Studies: Echocardiogram 02/24/21 Sestamibi Stress Test (Cardiology) 12/21/20 Holter Monitor 01/13/21
--- NOTE | 2024-12-08 12:38 | W.PM.OPSUD ---
Surgery/Procedure H&P Update DATE OF PROCEDURE: December 08, 2024 DATE H&P PERFORMED: 11/16/24 H&P UPDATE INFORMATION: I have reviewed H&P completed within last 30 days, I have examined patient prior to procedure and No changes to prior documentation PREOP DIAGNOSIS: Abdominal discomfort PLANNED PROCEDURE: Operation Date: 12/08/24 13:00 Proposed Procedures p Colonoscopy 27180 G0105 Z12.11(Not Applicable) - Donte Mar MD
[2024-12-08 13:11] VITALS: BP 129/73; PULSE 71; RESP 18; TEMP 36.7; O2SAT 98
[2024-12-08 13:19] VITALS: BP 126/71; PULSE 74; RESP 18; TEMP 36.7; O2SAT 96
== END 2024-12-08 13:39 | disposition home or self-care (01) ==
PROVIDERS: PCP Nurse Practitioner Family; Visit Provider Student in an Organized Health Care Education/Training Program
PROC: 0DJD8ZZ Inspection of Lower Intestinal Tract, Via Natural or Artificial Opening Endoscopic (ICD-10-PCS; CPT 45378; principal; 2024-12-08 13:00)
DX: Z12.11 Encounter for screening for malignant neoplasm of colon (principal); D12.5 Benign neoplasm of sigmoid colon; K57.30 Diverticulosis of large intestine without perforation or abscess without bleeding; Z87.891 Personal history of nicotine dependence; K21.9 Gastro-esophageal reflux disease without esophagitis; E78.5 Hyperlipidemia, unspecified; G47.33 Obstructive sleep apnea (adult) (pediatric); I10 Essential (primary) hypertension; Z79.899 Other long term (current) drug therapy; Z88.1 Allergy status to other antibiotic agents; Z88.8 Allergy status to other drugs, medicaments and biological substances
CPT/HCPCS: 45385; 88305; J2704; J7030

== ENCOUNTER 2024-12-10 08:14 | Outpatient (CLI) | payer MEDICAID, SELFPAY ==
[2024-12-10 08:24] VITALS: BMI 27.4
--- NOTE | 2024-12-10 08:26 | ECG_ITS ---
[facility] 2024-12[facility]10 Pat Name: Albertina Soto Department: Room: Gender: Female Teleradiologist: : 1960 Requested By: Jaycob Fournier Order Number: [id number] [place] MD: Jaycob Fournier M.D. Interpretive Statements LEXISCAN SESTAMIBI STRESS TEST Procedure: At the baseline, the blood pressure was 116/49 mmHg with a heart rate of 76 bpm. The electrocardiogram showed normal sinus rhythm, normal axis with normal ST and T's. The Lexiscan was infused over a period of 20 seconds. A total of 0.4 mg of Lexiscan was infused. The stress phase was continued for a total of 5 minutes. Heart rate was at the end of stress phase was 92 bpm and a blood pressure of 131/90 mmHg. The EKG at the peak infusion revealed normal sinus rhythm with no significant ST-T wave changes. Sestamibi was injected 20 seconds after the Lexiscan infusion. Blood pressure at the end of recovery phase was 123/78 mmHg with a heart rate of 94 bpm. Conclusion: 1. Normal EKG response to Lexiscan infusion 2. No Lexiscan induced chest pain or cardiac arrhythmia. 3. Normal blood pressure and heart rate response. 4. Sestamibi/sestamibi perfusion scan pending; see separate report. Electronically Signed On 12-10-2024 12:35:56 CDT by Jaycob Fournier M.D. [email or web address]
--- NOTE | 2024-12-10 08:26 | NMCV_ITS ---
NM duong perf SPECT r/s* [id number] Albertina Soto Age: 64 Gender: F : 1960 Exam Date: 12/10/2024 09:06 Ordering Phys: Jaycob Fournier M.D ([email or web address]) Technologist: MARIO Jones Exam Location: [facility] Indications: cp STRESS TEST [facility] IMAGE PROTOCOL Rest/Stress 1 Lexiscan Day Radiopharmaceutical Dose (mCi) Administration Site Administered by Rest: Tc-99m 10.3 IV Hoda Rachel [employer]IN[employer]OR INST[employer]ER Sestamibi Stress:Tc-99m 32.8 IV Hoda Aikengle, L[employer]IN[employer] FLOOR INST[employer]ER Sestamibi Rest: 10-Dec-2024 60 Discovery 630 Stress: 10-Dec-2024 30 Discovery 630 0.4mg Lexiscan. Images obtained in supine and prone position. SPECT RESULTS Technical Quality: Good Raw Data Analysis: Normal Image Corrections: No attenuation or motion correction applied Summed Stress Score: 0 Summed Rest Score: 0 Summed Difference Score: 0 PERFUSION FINDINGS SPECT images demonstrate homogeneous tracer distribution throughout the myocardium. FUNCTIONAL RESULTS (calculated via Gated SPECT) Stress Image LV EF (%): 76 Stress EDV (mL):62 TID: 1.21 Stress ESV (mL):15 FUNCTIONAL FINDINGS: There is normal left ventricular systolic function. TID ratio is elevated and is 1.21 IMPRESSIONS 1. Normal myocardial perfusion imaging with no evidence of ischemia. 2. LV systolic function is normal. 3. TID ratio is elevated and is 1.21. However in absence of perfusion abnormality, significance of this finding is equivocal. Jaycob Fournier MD (Electronically Signed) Final Date: 10 December 2024 12:07 S
[2024-12-10 09:45] VITALS: BP 123/78; PULSE 95
== END 2024-12-10 08:15 | disposition home or self-care (01) ==
LOC: CDL 08:15
PROVIDERS: PCP Nurse Practitioner Family; Visit Provider Internal Medicine
DX: R07.9 Chest pain, unspecified (principal); R06.02 Shortness of breath; R93.1 Abnormal findings on diagnostic imaging of heart and coronary circulation
CPT/HCPCS: 36415; 78452; 93017; 96374; A9500; J2785

== ENCOUNTER → 2025-02-19 09:17 | Outpatient (BNVA) | payer MEDICAID, SELFPAY | PROVIDERS: PCP Nurse Practitioner Family; Visit Provider Nurse Practitioner Family | DX: Z78.0 Asymptomatic menopausal state (principal); I10 Essential (primary) hypertension | CPT/HCPCS: 80053; 80061; 82306; 82607; 82670; 83036; 83735; 84144; 84443; 85025 ==

== ENCOUNTER → 2025-02-23 16:00 | Outpatient (BNVA) | payer MEDICAID, SELFPAY | PROVIDERS: PCP Nurse Practitioner Family; Visit Provider Internal Medicine | DX: I10 Essential (primary) hypertension (principal); R06.00 Dyspnea, unspecified | CPT/HCPCS: 36415; 80048; 83880 ==

== ENCOUNTER 2025-03-10 09:29 | Outpatient (CLI) | payer MEDICAID, SELFPAY ==
--- NOTE | 2025-03-10 09:30 | USR_ITS ---
PROCEDURE INFORMATION: Exam: US Duplex Lower Extremity Veins, Bilateral Exam date and time: 03/10/2025 10:01 AM Age: 64 years old Clinical indication: Swelling (edema) of limb; Lower extremity, bilateral; Additional info: Bilat leg pain TECHNIQUE: Imaging protocol: Real-time duplex ultrasound of the bilateral extremities with 2-D hyman scale, color Doppler flow and spectral waveform analysis including responses to compression and other maneuvers (when performed) with image documentation. Complete exam focused on the lower extremity veins. COMPARISON: CR XR foot LT min 3V* [id number] 02/27/2023 2:20 PM FINDINGS: Right deep veins: Unremarkable. The common femoral, femoral, proximal profunda femoral and popliteal veins are patent without thrombus. Normal Doppler waveforms. Normal compressibility and/or augmentation response. Left deep veins: Unremarkable. The common femoral, femoral, proximal profunda femoral and popliteal veins are patent without thrombus. Normal Doppler waveforms. Normal compressibility and/or augmentation response. Superficial veins: Greater saphenous veins at the saphenofemoral junctions are patent bilaterally without thrombus. Soft tissues: Unremarkable. US/CV jeremiah dup betty [facility] [id number] IMPRESSION: No sonographic evidence of DVT.
== END 2025-03-10 09:30 | disposition home or self-care (01) ==
LOC: RAD 09:32
PROVIDERS: PCP Nurse Practitioner Family; Visit Provider Internal Medicine
DX: M79.604 Pain in right leg (principal); M79.605 Pain in left leg
CPT/HCPCS: 93970

== ENCOUNTER → 2025-03-24 15:28 | Outpatient (BNVA) | payer MEDICAID, SELFPAY | PROVIDERS: PCP Nurse Practitioner Family; Visit Provider Nurse Practitioner Family | DX: D72.829 Elevated white blood cell count, unspecified (principal) | CPT/HCPCS: 85007; 85027; 88305 ==

== ENCOUNTER → 2025-03-25 17:37 | Outpatient (BNVA) | payer MEDICAID, SELFPAY | PROVIDERS: PCP Nurse Practitioner Family; Visit Provider Nurse Practitioner Family | DX: L98.9 Disorder of the skin and subcutaneous tissue, unspecified (principal) | CPT/HCPCS: 80503 ==